=== PATIENT | female | born 1955 | race Caucasian/White ===

== ENCOUNTER 2019-11-16 09:02 | Emergency (ER) | payer OTHER, SELFPAY ==
--- NOTE | ~2019-11-16 | XR_ITS ---
EXAMINATION: XR chest 2V DATE: 11/16/2019 10:16 INDICATION: Cough, fever, shortness of breath. TECHNIQUE: Frontal and lateral views of the chest were obtained. COMPARISON: Chest 2 views 06/13/2017 FINDINGS: There is mild scarring at the lung apices. No pleural effusion or pneumothorax. The heart s ize is normal. There are suture anchors in right humeral head. Surgical clips in the right upper quad rant are likely from cholecystectomy. IMPRESSION: 1. Mild scarring at the lung apices. Reviewed, dictated and finalized at location A. LER TIER
[2019-11-16 09:05] VITALS: BP 135/79; PULSE 83; RESP 20; TEMP 36.6; O2SAT 93
[2019-11-16 09:30] VITALS: PULSE 84; RESP 16
[2019-11-16] MEDS: IPRATROPIUM 0.5 MG/ALBUTEROL SULFATE 2.5 MG AMPUL.NEB 3 ML INHALATION (09:30)
[2019-11-16 09:38] LABS: Basophils Absolute Auto 0.07 K/mm3 (0.00-0.10); Basophils Percent Auto 0.7 % (0.0-1.0); Eosinophils Absolute Auto 0.02 K/mm3 (0.02-0.50); Eosinophils Percent Auto 0.2 % (1.0-6.0); Hematocrit 43.6 % (35.0-49.0); Hemoglobin 15.3 g/dL (12.0-15.0); Immature Granulocyte Absolute 0.06 K/mm3 (0.00-0.00); Immature Granulocyte Percent A 0.6 % (0.0-0.0); Lymphocytes Absolute Auto 1.32 K/mm3 (1.10-4.50); Lymphocytes Percent Auto 13.3 % (18.0-42.0); Mean Corpuscular HGB Conc 35.1 g/dL (32.0-36.0); Mean Corpuscular Hemoglobin 32.5 pg (27.0-31.0); Mean Corpuscular Volume 92.6 fL (78.0-102.0); Mean Platelet Volume 8.8 fl (9.2-11.8); Monocytes Absolute Auto 1.18 K/mm3 (0.10-0.90); Monocytes Percent Auto 11.8 % (2.0-11.0); Neutrophils Absolute Auto 7.3 K/mm3 (1.7-7.2); Neutrophils Percent Auto 73.4 % (50.0-70.0); Platelet Count Result 361 K/mm3 (150-420); Red Blood Count 4.71 M/mm3 (4.20-5.40); Red Cell Distribution Width 12.2 % (11.6-14.4)
[2019-11-16 09:42] VITALS: O2SAT 93
[2019-11-16 09:45] VITALS: PULSE 82; RESP 24
[2019-11-16 09:54] LABS: Alanine Aminotransferase 37 U/L (14-59); Albumin Level 4.1 g/dL (3.4-5.0); Alkaline Phosphatase 153 U/L (46-116); Anion Gap 14.4 mmol/L (7-16); Aspartate Amino Transferase 34 U/L (15-37); Bilirubin,Total 0.3 mg/dL (0.00-1.00); Blood Urea Nitrogen 12 mg/dL (7-18); Carbon Dioxide 27 mmol/L (21-32); Chloride 88 mmol/L (98-108); Estimated CRCL calculation 40 ml/min; Estimated Glomerular Filt Rate > 60; Glucose 147 mg/dL (70-99); Osmolality Calculated 264 mOsm/kg (285-295); Potassium 3.4 mmol/L (3.5-5.1); Sodium 126 mmol/L (136-145); Total Protein 8.3 g/dL (6.4-8.2)
[2019-11-16] MEDS: methylPREDNISolone SOD SUCC 125 MG VIAL IV PUSH (09:55)
[2019-11-16 09:58] LABS: Influenza Control Valid (Valid)
--- NOTE | 2019-11-16 10:32 | ED.SOB ---
HPI - SOB/Dyspnea General Chief Complaint: Shortness of Breath/Dyspnea Stated Complaint: FEVER DIARRAHEA SOB Source: patient Limitations: no limitations History of Present Illness HPI Narrative: A 64-year-old female presents with cough and congestion with some shortness of breath without coarse breath sounds no audible wheezing initially had a O2 sats of 93%, history of hypertension, depression. The patient has a cough that is productive of clear white sputum, has recently been exposed to pneumonia and influenza, and last night had a temperature of 102? currently afebrile withl temperature of 97.6 O2 sats were at 93% on room air. There is no chest pain no chest tightness has had diarrhea with no nausea vomiting. Patient a chronic smoker but did quit 8 days ago. MD elicited complaint: shortness of breath and cough Onset (ago): day(s) Severity: moderate Exacerbating factors: coughing Relieving factors: rest and bronchodilators Associated symptoms: fever, cough and chest congestion Treatment prior to arrival: none Related Data Home Medications Medication Instructions Recorded Confirmed bupropion HCl [Wellbutrin SR] 150 mg PO BID 11/16/19 11/16/19 buspirone 15 mg PO BID 11/16/19 11/16/19 cholecalciferol (vitamin D3) 2,000 unit PO DAILY 11/16/19 11/16/19 [Vitamin D3] cyclobenzaprine 10 mg PO PRN PRN 11/16/19 11/16/19 gabapentin 600 mg PO TID 11/16/19 11/16/19 losartan 25 mg PO DAILY 11/16/19 11/16/19 trazodone 50 mg PO HS 11/16/19 11/16/19 Allergies Allergy/AdvReac Type Severity Reaction Status Date / Time Penicillins Allergy Severe RESPIRATORY Verified 06/19/16 16:47 / HIVES Review of Systems Review of Systems: All systems reviewed & are unremarkable except as noted in HPI and below PMFSH Past Medical History Medical History Depression HTN (hypertension) Exam Const: General: no acute distress and alert Nutritional Appearance: well nourished Orientation/consciousness: patient oriented x3 HENMT: Head: normal to inspection Eyes: Conjunctivae: conjunctivae normal Pupils: Equal, round and reactive pupils present EOM: EOMs intact bilaterally Neck: Neck: normal visual inspection and no lymphadenopathy Chest: Chest palpation & inspection: normal inspection of the chest Resp: Effort & Inspection: normal respiratory effort Auscultation: rhonchi and diminished lung sounds Cardio: Rate: regular rate Rhythm: regular rhythm GI: GI Palp: Yes Soft to palpation : General: Yes no CVA tenderness Skin: General skin exam: normal color Rashes: no rashes Neuro: General: patient oriented x3 and moves all extremities Extrem: General: normal to inspection Course Vital Signs Vital signs: Vital Signs Temperature 36.6 C 11/16/19 09:05 Pulse Rate 83 11/16/19 09:05 Respiratory Rate 20 11/16/19 09:05 Blood Pressure 135/79 11/16/19 09:05 Pulse Oximetry 93 11/16/19 09:05 Temperature 36.6 C 11/16/19 09:05 Pulse Rate 82 11/16/19 09:45 Respiratory Rate 24 H 11/16/19 09:45 Blood Pressure 135/79 11/16/19 09:05 Pulse Oximetry 93 11/16/19 09:42 MDM - SOB/Dyspnea Lab Data Attestation: I reviewed the patient's lab results. Result diagrams: 11/16/19 09:26 11/16/19 09:26 Labs: Lab Results 11/16/19 11/16/19 11/16/19 Range/Units 09:22 09:26 09:26 WBC 10.0 (4.8-10.8) K/mm3 RBC 4.71 (4.20-5.40) M/mm3 Hgb 15.3 H (12.0-15.0) g/dL Hct 43.6 (35.0-49.0) % MCV 92.6 (78.0-102.0) fL MCH 32.5 H (27.0-31.0) pg MCHC 35.1 (32.0-36.0) g/dL RDW 12.2 (11.6-14.4) % Plt Count 361 (150-420) K/mm3 MPV 8.8 L (9.2-11.8) fl Immature Gran % (Auto) 0.6 H (0.0-0.0) % Neut % (Auto) 73.4 H (50.0-70.0) % Lymph % (Auto) 13.3 L (18.0-42.0) % [place] % (Auto) 11.8 H (2.0-11.0) % Eos % (Auto) 0.2 L (1.0-6.0) % Baso % (Auto) 0.7 (0.0-1.0
[2019-11-16 10:37] VITALS: BP 102/68; PULSE 98; RESP 20; TEMP 37.2; O2SAT 96
== END 2019-11-16 10:50 | disposition home or self-care (01) ==
PROVIDERS: Emergency Provider Emergency Medicine; PCP Internal Medicine
DX: J06.9 Acute upper respiratory infection, unspecified (principal); R05 Cough; I10 Essential (primary) hypertension; F33.0 Major depressive disorder, recurrent, mild
CPT/HCPCS: 36415; 71046; 80053; 85025; 87040; 87081; 87804; 87880; 94640; 96374; 99283; 99284; J2930

== ENCOUNTER 2020-04-21 12:18 | Outpatient (CLI) | payer OTHER, SELFPAY ==
--- NOTE | ~2020-04-21 | DEXA_ITS ---
BMD(1) Young-Adult(2) Age-Matched(3) Region (g/cm2) T-score Z-score WHO Classification L1 0.829 -2.5 -0.9 Osteoporosis L2 0.833 -3.1 -1.5 Osteoporosis L3 1.033 -1.5 0.2 Osteopenia L4 1.076 -1.1 0.5 Osteopenia L1-L4 0.956 -1.9 -0.3 Osteopenia Trend: L1-L4 Change vs Change vs Measured Age BMD(1) Baseline Previous Date [age]) (g/cm2) (%) (%) 04[age]21/2020 [age] 0[age]956 2.5 3.0* 09[birth year]03/2013 58.5 0.928 -0.5 0.3 10[age]22/2010 55.6 0.925 -0.9 -0.9 10/17/2008 53.6 0.933 baseline - * - Indicates significant change based on 95% confidence interval. 1 - Statistically 68% of repeat scans fall within 1SD (+- 0.010 g/cm2 for AP Spine L1-L4) 2 - [place] (Combined NHANES (ages 20-30) / [employer] (ages 20-40)) AP Spine Reference Population (v112) 3 - Matched for Age, Weight (females 25-100 kg), Ethnic 11 - World Health Organization - Definition of Osteoporosis and Osteopenia for Women: Normal = T-score at or above -1.0 SD; Osteopenia = T-score between -1.0 and -2.5 SD; Osteoporosis = T-score at or below -2.5 SD; (WHO definitions only apply when a young healthy Women reference database is used to determine T-scores.) Printed: 04/21/2020 1:05:40 PM (13.60)76:3.00:50.00:12.0 0.00:9.96 0.60x1.05 19.1:%Fat=27.0% 0.00:0.00 0.00:0.00 Filename: [id number] Scan Mode: Standard;OneScan 37.0 [facility] [id number] BMD(1) Young-Adult(2,7) Age-Matched(3) Region (g/cm2) T-score Z-score WHO Classification Neck Left 0.759 -2.0 -0.5 Osteopenia Right 0.746 -2.1 -0.6 Osteopenia Mean 0.752 -2.1 -0.5 Osteopenia Difference 0.013 -0.1 -0.1 - Total Left 0.768 -1.9 -0.7 Osteopenia Right 0.788 -1.7 -0.5 Osteopenia Mean 0.778 -1.8 -0.6 Osteopenia Difference 0.020 0.2 0.2 - Hip [place] Length Comparison (mm) (Right = 100.6 mm) (Mean = 101.9 mm) (Left = 99.1 mm) Trend: Total Mean Change vs Change vs Measured Age BMD(1) Baseline Previous Date (years) (g/cm2) (%) (%) 04[age]21/2020 65.1 0.778 -9.4* -4.4* 09/03/2013 58.5 0.814 -5.2* -2.7 10/22/2010 55.6 0.837 -2.6 -2.6 10/17/2008 53.6 0.859 baseline - * - Indicates significant change based on 95% confidence interval. 1 - Statistically 68% of repeat scans fall within 1SD (+- 0.010 g/cm2 for DualFemur Total) 2 - [place] (Combined NHANES (ages 20-30) / [employer] (ages 20-40)) Femur Reference Population (v112) 3 - Matched for Age, Weight (females 25-100 kg), Ethnic 7 - Dual[employer]emur Total T-score difference is 0.2. Asymmetry is None. 11 - World Health Organization - Definition of Osteoporosis and Osteopenia for Women: Normal = T-score at or above -1.0 SD; Osteopenia = T-score between -1.0 and -2.5 SD; Osteoporosis = T-score at or below -2.5 SD; (WHO definitions only apply when a young healthy Women reference database is used to determine T-scores.) Printed: 04/21/2020 1:05:41 PM (13.60); Filename: [id number]; Right Femur; 16.5:%Fat=31.3%; Neck Angle (deg)= 66; Scan Mode: Standard 37.0 uGy; Left Femur; 16.5:%Fat=34.6%; Neck Angle (deg)= 69; Scan Mode: Standard 37.0 uGy [employer] [id number] Dear Romero Ludwig, Your patient Marissa Shoemaker completed a BMD test on 04/21/2020 using the [employer] DXA System (analysis version: 13.60)
--- NOTE | ~2020-04-21 | MM_ITS ---
EXAMINATION: MM screening mark BI w wei HISTORY: Screening mammogram TECHNIQUE: Craniocaudal and mediolateral oblique 3-D tomosynthesis images were obtained and synthetic 2-D images were generated. CAD analysis was submitted and interpreted. COMPARISON: 01/11/2019, 06/13/2017 bilateral digital screening mammogram examinations BREAST PARENCHYMAL COMPOSITION: The breasts are extremely dense, which lowers the sensitivity of mamm ography. FINDINGS: There is no evidence of suspicious mass, calcification, or architectural distortion to sugg est malignancy in either breast. There has been no suspicious interval change. IMPRESSION: 1. No mammographic evidence of malignancy. 2. Recommend routine screening mammography in one year. BI-RADS Category 1: Negative Reviewed, dictated and finalized at location A.
== END 2020-04-21 12:19 | disposition home or self-care (01) ==
LOC: CHSIMG 12:21
PROVIDERS: PCP Internal Medicine; Visit Provider Internal Medicine
DX: Z12.31 Encounter for screening mammogram for malignant neoplasm of breast (principal); M81.0 Age-related osteoporosis without current pathological fracture
CPT/HCPCS: 77063; 77067; 77080

== ENCOUNTER 2020-05-17 10:19 | Outpatient (CLI) | payer OTHER, SELFPAY ==
--- NOTE | ~2020-05-17 | US_ITS ---
EXAMINATION: US soft tissue head and neck DATE: 05/17/2020 10:39 INDICATION: Left posterior neck lump. TECHNIQUE: Multiple grayscale and Doppler ultrasound images of the neck were obtained. COMPARISON: Neck CT 06/13/2017 FINDINGS: There is a normal-sized subcutaneous lymph node in left posterior neck in the patient's are a of concern. IMPRESSION: 1. Normal subcutaneous lymph node in left posterior neck in the patient's area of concern. Reviewed, dictated and finalized at location A.
== END 2020-05-17 10:20 | disposition home or self-care (01) ==
PROVIDERS: PCP Internal Medicine; Visit Provider Internal Medicine
DX: R59.0 Localized enlarged lymph nodes (principal)
CPT/HCPCS: 76536

== ENCOUNTER 2020-10-18 16:07 | Outpatient (CLI) | payer OTHER, SELFPAY ==
[2020-10-18 16:56] LABS: SARS-CoV-2 Ag Negative (Negative)
== END 2020-10-18 16:08 | disposition home or self-care (01) ==
LOC: CHSLAB 16:08
PROVIDERS: PCP Internal Medicine; Visit Provider Internal Medicine
DX: Z20.828 Contact with and (suspected) exposure to other viral communicable diseases (principal)
CPT/HCPCS: 87426

== ENCOUNTER 2021-05-08 13:23 | Outpatient (CLI) | payer OTHER, SELFPAY ==
[2021-05-08 14:41] LABS: SARS-CoV-2 RNA PCR Negative (Negative)
== END 2021-05-08 13:24 | disposition home or self-care (01) ==
LOC: CHSLAB 13:26
PROVIDERS: PCP Internal Medicine; Visit Provider Nurse Practitioner Family
DX: Z20.822 Contact with and (suspected) exposure to COVID-19 (principal)
CPT/HCPCS: C9803; U0003; U0005

== ENCOUNTER 2021-08-01 14:14 | Outpatient (CLI) | payer OTHER, SELFPAY ==
--- NOTE | ~2021-08-01 | XR_ITS ---
XR chest 2V DATE: 08/01/2021 14:45 INDICATION: Productive cough, wheezing. Smoker. Influenza A. TECHNIQUE: 2 views COMPARISON: 11/16/2021 view chest FINDINGS: There is bilateral hyperinflation, consistent with COPD. No pulmonary infiltrate or consoli dation, pleural effusion or pulmonary vascular congestion or pneumothorax. Normal heart size. No hilar or mediastinal enlargement. Moderate osteopenia. [place] device of right humeral head Status post cholecystectomy. IMPRESSION: Bilateral hyperinflation, consistent with COPD Reviewed, dictated and finalized at location B.
== END 2021-08-01 14:15 | disposition home or self-care (01) ==
LOC: CHSIMG 14:15
PROVIDERS: PCP Internal Medicine; Visit Provider Internal Medicine
DX: J44.1 Chronic obstructive pulmonary disease with (acute) exacerbation (principal)
CPT/HCPCS: 71046

== ENCOUNTER 2021-08-06 12:20 | Outpatient (CLI) | payer OTHER, SELFPAY ==
--- NOTE | ~2021-08-06 | CT_ITS ---
EXAMINATION: CT lung screening DATE: 08/06/2021 12:39 INDICATION: Nicotine dependence. TECHNIQUE: Computed tomography (CT) of the chest was performed without intravenous contrast. The dose -length product was 62.71 mGy-cm. Automated exposure control and iterative reconstruction technique w ere employed. COMPARISON: CT dated 03/11/2019 FINDINGS: No thoracic lymphadenopathy. Heart size is normal. No significant pleural or pericardial ef fusion. Upper abdomen is unremarkable. There are cholecystectomy clips. Moderate thoracic spondylosis . No significant change to small apical nodules measuring 2 mm or less. There is emphysema. No endobr onchial lesions. No pneumothorax. No new pulmonary nodules or masses. IMPRESSION: 1. Lung-RADS category 2: Benign appearance or behavior. Continue annual screening with noncontrast lo w-dose chest CT in 12 months. Reviewed, dictated and finalized at location B. IMPRESSION: 1. Lung-RADS category 2: Benign appearance or behavior. Continue annual screeni ng with noncontrast low-dose chest CT in 12 months.
== END 2021-08-06 12:21 | disposition home or self-care (01) ==
LOC: CHSIMG 12:21
PROVIDERS: PCP Internal Medicine; Visit Provider Internal Medicine
DX: Z12.2 Encounter for screening for malignant neoplasm of respiratory organs (principal); Z87.891 Personal history of nicotine dependence
CPT/HCPCS: 71271

== ENCOUNTER 2021-08-24 13:48 | Outpatient (CLI) | payer OTHER, SELFPAY ==
--- NOTE | 2021-08-24 14:00 | ECG_ITS ---
Measurements Intervals [place] Rate: 70 P: 79 [place]: 207 QRS: 71 QRSD: 94 T: 63 QT: 382 QTc: 413 Interpretive Statements SINUS RHYTHM WITH FIRST DEGREE AV BLOCK ANTEROSEPTAL INFARCT, AGE INDETERMINATE BORDERLINE ST ABNORMALITY- INF/LAT LEADS ABNORMAL ECG Electronically Signed On 08-24-2021 14:38:09 CDT by Jose Alejandro Garcia D.O.
--- NOTE | 2021-09-24 09:18 | WPDHOLTEREM ---
Holter/Event Monitor Holter/Event Monitor Date of procedure: 08/24/21 Holter/Event Procedure: Event Monitor Indications: Palpitations Conclusion: 1. 26 days event monitor on 08/24/21-09/22/21. There are 16 available transmissions for analysis. 2. Underlying rhythm is sinus rhythm. HR range 53-120 bpm; average HR 75 bpm. 3. There are occasional premature supraventricular complexes with total burden of 1%. No supraventricular tachycardia. 4. There are occasional premature ventricular complexes with total burden of <1%. No ventricular tachycardia. 5. No significant pauses greater than 2 seconds. 6. Patient reports 7 episodes of symptoms of chest pain, heart racing and symptoms other than listed which demonstrate sinus rhythm, HR range 77-89 bpm and with episodes having PAC's.
== END 2021-08-24 13:49 | disposition home or self-care (01) ==
LOC: CHSCARD 13:50
PROVIDERS: PCP Internal Medicine; Visit Provider Internal Medicine
DX: R00.2 Palpitations (principal); I10 Essential (primary) hypertension
CPT/HCPCS: 93005; 93270

== ENCOUNTER 2021-10-01 13:50 | Outpatient (CLI) | payer OTHER, SELFPAY ==
--- NOTE | 2021-10-01 13:51 | ECHO_ITS ---
Patient Info Name: Marissa Shoemaker Age: 66 years : 1955 Gender: Female Ht: 60 in Wt: 125 lbs BSA: 1.56 m2 HR: 66 bpm BP: 139 / 60 mmHg Exam Date: 10/01/2021 2:41 PM Exam Location: [facility], [place] Patient Status: Outpatient Admit Date: 10/01/2021 Staff Ordering Physician: Jose Alejandro Garcia DO Software Developer Manager: Isabel Reynoso Attending Provider: Jose Alejandro Garcia DO Referring Physician: Jose BLUNT; Exam Type: CA echo doppler color flow Study Info Indications R06.00 - Dyspnea, unspecified Complete two-dimensional, color flow and Doppler transthoracic echocardiogram is performed. Strain analysis performed. Summary 1. Complete two-dimensional, color flow and Doppler transthoracic echocardiogram is performed. 2. Left ventricular chamber dimension is normal. 3. Left ventricular systolic function is normal, estimated at 60-65%. 4. The left ventricular diastolic function is abnormal. 5. E/e' 13 is mildly elevated. 6. Global longitudinal strain is normal at -21.3%. 7. There is trace mitral valve regurgitation. Left Ventricle E/e' 13 is mildly elevated. Global longitudinal strain is normal at -21.3%. Left ventricular chamber dimension is normal. Left ventricular systolic function is normal, estimated at 60-65%. The left ventricular diastolic function is abnormal. Right Ventricle Right ventricular systolic function is normal and with normal TAPSE 2.1 cm. Right ventricular chamber dimension is normal. Left Atria Left atrial chamber dimension is normal. Right Atria Right atrial chamber dimension is normal. Aortic Valve The aortic valve is trileaflet. There is no aortic valve stenosis. There is no aortic valve regurgitation. Pulmonic Valve There is no pulmonic regurgitation. Mitral Valve There is no mitral valve stenosis. There is trace mitral valve regurgitation. Tricuspid Valve There is no tricuspid valve regurgitation. Pericardium/Pleural There is no pericardial effusion. Inferior Vena Cava Normal inferior vena cava with >50% collapse upon inspiration consistent with normal right atrial pressure, 5 mmHg. Aorta The aortic root size at the sinus of Valsalva is normal. Left Ventricular Outflow Tract Name Value Normal LVOT 2D LVOT Diameter 2.0 cm LVOT Doppler LVOT Peak Velocity 109 cm/s LVOT Peak Gradient 5 mmHg LVOT Mean Gradient 3 mmHg LVOT VTI 26 cm LVOT VTI/AV VTI Ratio 1.0 LVOT Stroke Volume 78 ml Mitral Valve Name Value Normal MV Doppler MV Decel [place] 434 cm/s2 MV PHT 56 ms MV Area (PHT) 3.9 cm2 4.0-5.0 MV Regurgitation Doppler
== END 2021-10-01 13:51 | disposition home or self-care (01) ==
LOC: CHSIMG 13:51
PROVIDERS: PCP Internal Medicine; Visit Provider Internal Medicine Cardiovascular Disease
DX: R06.00 Dyspnea, unspecified (principal)
CPT/HCPCS: 93306

== ENCOUNTER 2021-10-08 11:28 | Outpatient (CLI) | payer OTHER, SELFPAY ==
--- NOTE | 2021-10-08 13:00 | EST_ITS ---
Patient Info Name: Marissa Shoemaker Age: 66 years : 1955 Gender: Female Ht: 60 in Wt: 123 lbs BSA: 1.55 m2 Exam Date: 10/08/2021 12:22 PM Exam Location: [facility] Patient Status: Outpatient Admit Date: 10/08/2021 Staff Ordering Physician: Jose Alejandro Garcia DO Attending Provider: Jose Alejandro Garcia DO Exam Type: CA stress shandra w NM Summary 1. 1. Negative Lexiscan stress test for ischemic ST changes by ECG criteria. 2. 2. Baseline hypertension. 3. 3. Nuclear scan to follow and will be reported separately. Please correlate with it. 4. 4. Patient informed of the above results. Protocol: LEXISCAN Stress ECG Details Stage: REST Duration (min): 1 min : 13 sec HR (bpm): 66 SBP (mmHg): 157 DBP (mmHg): 78 Stage: REST Duration (min): 3 min : 51 sec HR (bpm): 66 SBP (mmHg): 157 DBP (mmHg): 78 Stage: REST Duration (min): 20 min : 25 sec HR (bpm): 68 SBP (mmHg): 157 DBP (mmHg): 78 Stage: STAGE 1 Duration (min): 0 min : 6 sec HR (bpm): 71 SBP (mmHg): 157 DBP (mmHg): 78 Stage: RECOVERY Duration (min): 0 min : 53 sec HR (bpm): 80 SBP (mmHg): 157 DBP (mmHg): 78 Stage: RECOVERY Duration (min): 1 min : 53 sec HR (bpm): 83 SBP (mmHg): 157 DBP (mmHg): 78 Stage: RECOVERY Duration (min): 2 min : 53 sec HR (bpm): 83 SBP (mmHg): 155 DBP (mmHg): 74 Stage: RECOVERY Duration (min): 3 min : 53 sec HR (bpm): 78 SBP (mmHg): 144 DBP (mmHg): 75 Stage: RECOVERY Duration (min): 4 min : 53 sec HR (bpm): 76 SBP (mmHg): 132 DBP (mmHg): 75 Stage: RECOVERY Duration (min): 5 min : 53 sec HR (bpm): 76 SBP (mmHg): 136 DBP (mmHg): 76 Stage: RECOVERY Duration (min): 6 min : 4 sec HR (bpm): 75 SBP (mmHg): 136 DBP (mmHg): 76 Rest HR: 68 bpm Peak HR: 86 bpm Rest Sys BP: 157 mmHg Peak Sys BP: 155 mmHg Max Pred HR: 156 bpm % Max Pred HR: 55 % Target HR: 133 bpm Max RPP: 13,330 bpm*mmHg Termination Reason: Completed protocol Cardiac Symptoms: Shortness of breath Total Time: 0 min : 6 sec Rest Romero BP: 78 mmHg Peak Romero BP: 74 mmHg Total Dose: 0.4 mg Resting ECG Sinus rhythm, anteroseptal infarct, age indeterminate, borderline ST-T wave abnormality in inferior leads. Stress ECG No ST changes. Arrhythmias None. Report Signatures
--- NOTE | 2021-10-08 15:27 | WPDCARIOSTRE ---
Nuclear Stress Test INDICATIONS Indications: Chest pain PROCEDURE Procedure Performed: Myocardial Perf Spect-Multi Procedure: Patient underwent a lexiscan stress test and immediately as injected with 32.8 mCi of cardiolyte. Multiple tomographic images were obtained. These are of good quality. There is no perfusion defects noted during stress imaging. A separate resting images were obtained after patient was injected with 10.2 mCi of cardiolyte. Multiple tomographic images were obtained. These are of good quality. There is no perfusion defects noted during rest imaging. CONCLUSION Conclusion: 1. Normal myocardial perfusion imaging demonstrating no perfusion defects with stress or rest imaging. 2. No evidence of reversible ischemia. 3. Left ventriculogram demonstrates normal measured ejection fraction of 74%. No wall motion abnormalities. 4. TID score 1.1 is normal.
== END 2021-10-08 11:29 | disposition home or self-care (01) ==
LOC: CHSCARD 11:29
PROVIDERS: PCP Internal Medicine; Visit Provider Internal Medicine Cardiovascular Disease
DX: R06.00 Dyspnea, unspecified (principal)
CPT/HCPCS: 78452; 93017; A9502; J2785

== ENCOUNTER 2021-10-22 14:24 | Outpatient (CLI) | payer OTHER, SELFPAY ==
[2021-10-22 16:36] LABS: Influenza A QL RT-PCR Negative (Negative); Influenza B QL RT-PCR Negative (Negative); SARS-CoV-2 RNA PCR Negative (Negative)
== END 2021-10-22 14:25 | disposition home or self-care (01) ==
LOC: CHSLAB 14:26
PROVIDERS: PCP Internal Medicine; Visit Provider Internal Medicine
DX: J06.9 Acute upper respiratory infection, unspecified (principal); Z20.822 Contact with and (suspected) exposure to COVID-19
CPT/HCPCS: 87502; C9803; U0003; U0005

== ENCOUNTER 2022-03-28 09:45 | Outpatient (CLI) | payer MEDICARE, MEDICAID, SELFPAY ==
--- NOTE | ~2022-03-28 | XR_ITS ---
EXAMINATION: XR foot LT min 3V DATE: 03/28/2022 10:23 INDICATION: Left first toe pain, initial encounter TECHNIQUE: Dorsoplantar, lateral, and 2 oblique views of the left foot were obtained. COMPARISON: None. FINDINGS: There is an acute, traumatic, closed fracture in the proximal neck of the first proximal ph alanx which extends to the first metatarsophalangeal joint. There is subtle offset of the articular s urface at the fracture site. Soft tissue swelling surrounds the fracture. No additional acute osseous findings are evident. There is moderate osteoarthritis at the first metatarsophalangeal joint and mi ld osteoarthritis of multiple interphalangeal joints. A plantar calcaneal enthesophyte is noted. IMPRESSION: 1. Acute fracture of the first proximal phalanx extending to the first metatarsophalangeal joint. Reviewed, dictated and finalized at location A. IMPRESSION: 1. Acute fracture of the first proximal phalanx extending to the first metatars ophalangeal joint.
== END 2022-03-28 09:46 | disposition home or self-care (01) ==
PROVIDERS: PCP Internal Medicine; Visit Provider Internal Medicine
DX: S99.922A Unspecified injury of left foot, initial encounter (principal)
CPT/HCPCS: 73630

== ENCOUNTER 2022-04-01 12:52 | Outpatient (CLI) | payer MEDICARE, MEDICAID, SELFPAY ==
--- NOTE | ~2022-04-01 | XR_ITS ---
EXAMINATION: XR foot LT min 3V DATE: 04/01/2022 13:11 INDICATION: Left foot pain post injury TECHNIQUE: Standing dorsal plantar, two oblique and lateral views of the left foot were obtained. COMPARISON: 04/07/2022 FINDINGS: Again seen is a sagittally oriented intra-articular fracture of the left first proximal phalanx. The fracture remains minimally displaced with slight increase in a now 1-1.5 mm lucent fracture gap at th e proximal articular surface without significant incongruity. No other fractures identified. Polyarti cular osteoarthritis, moderate severity at the first metatarsophalangeal joint and mild at multiple t arsal metatarsal and interphalangeal joints. Small plantar calcaneal spur. Bunion at the medial head of the first metatarsal. IMPRESSION: 1. No significant change in a minimally displaced intra-articular fracture of the first proximal phal anx. Reviewed, dictated and finalized at location A. IMPRESSION: 1. No significant change in a minimally displaced intra-articular fracture of t he first proximal phalanx.
== END 2022-04-01 12:53 | disposition home or self-care (01) ==
PROVIDERS: PCP Internal Medicine; Visit Provider Orthopaedic Surgery
DX: M19.072 Primary osteoarthritis, left ankle and foot (principal); M77.32 Calcaneal spur, left foot; M21.612 Bunion of left foot
CPT/HCPCS: 73630

== ENCOUNTER 2022-04-23 08:04 | Outpatient (CLI) | payer MEDICARE, MEDICAID, SELFPAY ==
--- NOTE | ~2022-04-23 | DEXA_ITS ---
Bone Density Report Name: MIGUEL FLOOD Age: 67 Sex: Female Ethnicity: White Date of : 1955 Indication: postmenopausal; screening for osteoporosis; height loss; prior fracture; hysterectomy; Referring Provider: Romero Ludwig Study: Bone densitometry was performed. Exam Date: April 23, 2022 Accession number: [id number] Bone Density: Region BMD T-score Z-score Classification AP Spine(L1-L4) 0.787 -2.4 -0.6 Osteopenia Femoral Neck (Left) 0.590 -2.3 -0.8 Osteopenia Total Hip (Left) 0.721 -1.8 -0.6 Osteopenia Femoral Neck (Right) 0.590 -2.3 -0.8 Osteopenia Total Hip (Right) 0.745 -1.6 -0.4 Osteopenia Femoral Neck Mean 0.590 -2.3 -0.8 Osteopenia Total Hip Mean 0.733 -1.7 -0.5 Osteopenia World Health Organization criteria for BMD impression classify patients as: Normal (T-score at or above -1.0), Osteopenia (T-score between -1.0 and -2.5), or Osteoporosis (T-score at or below -2.5). 10-year Fracture Risk(1): Major Osteoporotic Fracture 19% Hip Fracture 3.4% Reported Risk Factors: [place] (), Neck BMD=0.590, BMI=27.4, previous fracture (1) FRAX(R) Version 3.08. Fracture probability calculated for an untreated patient. Fracture probability may be lower if the patient has received treatment. Clinical Information Provided by Patient: Has had a low trauma fracture Has used the following medications: Vitamin D, Calcium, multi vitamin Has the following medical conditions: Hysterectomy Patient maximum height was 62 Menopause Age: 46 No regular weight bearing exercise Drinks caffeinated beverages Onset of menses at age 19 Number of children 2 Missed period for more than 6 months in a row Impression: The patient has low bone mass, based on the Total Spine T-score. The patient has risk factors, including: previous fracture. Discussion: BONE DENSITY IS LOW AT ONE OR MORE SKELETAL SITES. This patient's lowest T-score is low at one or more skeletal sites. It meets the World Health Organization's (WHO) criteria for ?low bone mass? (T-score between -1.0 and -2.5). The patient's 10-year risk of fracture as calculated by FRAX is less than the threshold where pharmacological therapy is recommended by the National Osteoporosis Foundation (NOF). However, all treatment decisions require clinical judgment and consideration of individual patient factors, including patient preferences, comorbidities, previous drug use, risk factors not captured in the FRAX model (e.g., frailty, falls, vitamin D deficiency, increased bone turnover, interval significant decline in bone density) and possible under or overestimation of fracture risk by FRAX. The patient should follow a healthful lifestyle (good nutrition with adequate calcium and vitamin D, and appropriate weight-bearing exercise
--- NOTE | ~2022-04-23 | MM_ITS ---
EXAMINATION: MM screening mark BI w wei HISTORY: Screening TECHNIQUE: Craniocaudal and mediolateral oblique 3-D tomosynthesis images were obtained and synthetic 2-D images were generated. CAD analysis was submitted and interpreted. COMPARISON: Comparison to multiple prior studies sequentially, with oldest reviewed study dated 01/04. BREAST PARENCHYMAL COMPOSITION: The breasts are heterogeneously dense, which may obscure small masses . FINDINGS: There is no evidence of suspicious mass, calcification, or architectural distortion to sugg est malignancy in either breast. There has been no suspicious interval change. IMPRESSION: 1. No mammographic evidence of malignancy. 2. Recommend routine screening mammography in one year. BI-RADS Category 1: Negative Reviewed, dictated and finalized at location A.
== END 2022-04-23 08:05 | disposition home or self-care (01) ==
LOC: CHSIMG 08:07
PROVIDERS: PCP Internal Medicine; Visit Provider Internal Medicine
DX: M81.0 Age-related osteoporosis without current pathological fracture (principal); Z12.31 Encounter for screening mammogram for malignant neoplasm of breast
CPT/HCPCS: 77063; 77067; 77080

== ENCOUNTER 2022-05-06 08:00 | Outpatient (CLI) | payer MEDICARE, MEDICAID, SELFPAY ==
--- NOTE | ~2022-05-06 | XR_ITS ---
XR foot LT min 3V DATE: 05/06/2022 08:42 INDICATION: Fracture 6 weeks ago TECHNIQUE: 3 views COMPARISON: 04/01/2022 left foot 03/28/2022 left foot FINDINGS: There is sclerosis around the virtually nondisplaced linear intra-articular fracture of the base and shaft proximal phalanx of the first digit, consistent with healing. No interval change in p osition or alignment. There is mild to moderate osteoarthritic change at the first metatarsophalangeal joint. Mild plantar calcaneal enthesopathy. No other significant bony abnormality. IMPRESSION: Healing virtually nondisplaced intra-articular fracture of the base and shaft of the prox imal phalanx of the first digit Reviewed, dictated and finalized at location B. IMPRESSION: Healing virtually nondisplaced intra-articular fracture of the base and shaft of the proximal phalanx of the first digit
== END 2022-05-06 08:01 | disposition home or self-care (01) ==
LOC: CHSIMG 08:02
PROVIDERS: PCP Internal Medicine; Visit Provider Orthopaedic Surgery
DX: M79.672 Pain in left foot (principal); S92.415D Nondisplaced fracture of proximal phalanx of left great toe, subsequent encounter for fracture with routine healing
CPT/HCPCS: 73630

== ENCOUNTER 2022-06-19 12:56 | Outpatient (CLI) | payer MEDICARE, MEDICAID, SELFPAY ==
--- NOTE | ~2022-06-19 | XR_ITS ---
CORRECTED REPORT impression fix 06/25/22 [facility] [place] EXAMINATION: XR toe 1st LT min 2V DATE: 06/19/2022 15:45 INDICATION: Persistent left great toe pain and swelling post fracture 2 months prior. TECHNIQUE: Dorsal plantar, lateral and oblique views of the left great toe were obtained. COMPARISON: Radiograph dated 05/06/2022 and 04/07/2022 FINDINGS: Again seen is a healing intra-articular fracture at the medial base of the left first proximal phalanx. There is decreased lucency at the distal margin of the fracture reported persistent 1.5 mm lucent fracture gap without step-off at the articular cortex. 30 degree hallux valgus with bunion at the medial head of the first metatarsal. Unchanged mild to moderate osteoarthritis at the first metatarsophalangeal joint and second distal interphalangeal joint. Mild osteoarthritis at the remaining visualized interphalangeal and metatarsophalangeal joints. IMPRESSION: 1. Healing intra-articular fracture at the base of the first proximal PHALANX which remains in near-anatomic alignment. 2. Mild to moderate polyarticular osteoarthritis at the visualized medial left forefoot. 3. Hallux valgus with bunion. Reviewed, dictated and finalized at location A. MTDD IMPRESSION: 1. Healing intra-articular fracture at the base of the first proximal thighs wh ich remains in near-anatomic alignment. 2. Mild to moderate polyarticular osteoarthritis at the visualized medial left forefoot. 3. Hallux valgus with bunion.
== END 2022-06-19 12:57 | disposition home or self-care (01) ==
LOC: CHSIMG 13:02
PROVIDERS: PCP Internal Medicine; Visit Provider Internal Medicine
DX: S92.412D Displaced fracture of proximal phalanx of left great toe, subsequent encounter for fracture with routine healing (principal)
CPT/HCPCS: 73660

== ENCOUNTER 2022-07-15 08:04 | Outpatient (CLI) | payer MEDICARE, MEDICAID, SELFPAY ==
--- NOTE | ~2022-07-15 | XR_ITS ---
EXAMINATION: XR foot LT min 3V DATE: 07/15/2022 08:51 INDICATION: Left foot pain TECHNIQUE: Dorsoplantar, lateral, and oblique views of the left foot were obtained. COMPARISON: 06/19/2022 FINDINGS: Again seen is an intra-articular fracture at the medial base of the first proximal phalanx. Calcified callus at the fracture site has minimally increased. No additional fracture is identified. There is mild osteoarthritis of multiple interphalangeal joints. A plantar calcaneal enthesophyte is noted. The soft tissues are unremarkable. Hallux valgus with bunion is again noted. IMPRESSION: 1. Intra-articular fracture at the medial base of the first proximal phalanx with minimal interval he aling. Reviewed, dictated and finalized at location A. IMPRESSION: 1. Intra-articular fracture at the medial base of the first proximal phalanx wi th minimal interval healing.
== END 2022-07-15 08:05 | disposition home or self-care (01) ==
LOC: CHSIMG 08:06
PROVIDERS: PCP Internal Medicine; Visit Provider Orthopaedic Surgery
DX: M79.672 Pain in left foot (principal)
CPT/HCPCS: 73630

== ENCOUNTER 2022-07-31 13:52 | Outpatient (RCR) | payer MEDICARE, MEDICAID, SELFPAY ==
--- NOTE | 2022-07-31 15:19 | PTOPEVAL1 ---
Assessment and note entered by JT File, PT Evaluation Information Assessment Status Evaluation Diagnosis L great toe injury, fracture of the L great toe Onset 03/31/22 Subjective Information patient reports back in March she fell down the landing at her sisters house. she reports her ftoo stayed behind her. he reports her L great toe was black and blue for days. she reports she had an xray in march, april, may, and june which all report anatamoical alignment, but a fracture in the proximal phalanx of the L great toe. she reports she continues to have swelling in the toe, throbbing and swelling at night, and inability to push up on the toes. she is unable to bend it. she is complicated by arthritis in the foot/toe and by halux vaglus of the L great toe. she reports she wore a boto from march til may. she reports she has already tried new shoes and inserts in her shoes, but no change in pain/ symptoms. she reports she is walking more than a block a day with her dog still, and she is up on her feet every day. Reported Pain Level Pain Score 1: Self Report Assessment PT Clinical Summary mrs. leach is a 67 yo woman who presents to skilled PT services for evaluation and treatment of L great toe pain. she is 4 months post fracture of the proximal phalanx of the L great toe. she displays decreased rom, decreased rom, abnormal gait, and pain with palpation/mobility. she would do well to attend and participate in skilled PT services to improve her objective/functional deficits and progress towards a return to prior level ambulation and activity performance. Plan of Care Interventions Gait Training,Hot Pack/Cold Pack,Manual Therapy, Neuro Re-education,Patient/Caregiver Educati, Therapeutic Activities,Therapeutic Exercise PT Services Indicated Yes Treatment Frequency and 3x weekly for 12 visits Duration These treatments will address the objective and functional deficits as defined above. The patient will be advanced safely and appropriately in order for the patient to progress towards his/her prior level of function. Additional exercises will be introduced and as well as a comprehensive home exercise program upon discharge, if needed, ?to ensure carryover of functional gains achieved in the clinic. This treatment plan has been reviewed and agreement upon by the patient.
--- NOTE | 2022-08-30 11:00 | PTOPPROG ---
Assessment and note entered by Crystal Thompson DPT Evaluation Information Assessment Status Progress Diagnosis L great toe injury, fracture of the L great toe Onset 03/31/22 Subjective Information Pt reports that she got new orthotics yesterday but that it doesn't feel quite right. She reports her pain as a 2/10 but feels that it would be less if not for her orthotic. She can tell that her toe has been moving more easily recently. Assessment PT Clinical Summary Pt presents to physical therapy with signficant improvements in pain, range of motion, and strength since her initial evaluation. She is still limited in her range of motion which leads to a continued altered gait pattern. She will benefit from additional skilled PT to further facilitate symptom relief, improve range of motion , strength, and gait pattern, and return to functional and recreational activities. Plan of Care PT Services Indicated Yes Treatment Frequency and 2x week for 4 visits Duration These treatments will address the objective and functional deficits as defined above. The patient will be advanced safely and appropriately in order for the patient to progress towards his/her prior level of function. Additional exercises will be introduced and as well as a comprehensive home exercise program upon discharge, if needed, ?to ensure carryover of functional gains achieved in the clinic. This treatment plan has been reviewed and agreement upon by the patient.
--- NOTE | 2022-09-26 13:44 | PTOPDC ---
Assessment and note entered by Glenys Mitchell, PT Evaluation Information Assessment Status Discharge Diagnosis L great toe injury, fracture of L great toe Onset 03/31/22 Subjective Information Marissa Shoemaker reports she is doing better since initiating PT. She does have difficulty with squatting due to pain in her left great toe from bending too much. She does not have pain with all other activity. She does feel she has more mobility in her toe though. Reported Pain Level Pain Score 1: Self Report Assessment PT Clinical Summary Marissa Shoemaker has completed 16 skilled PT visits following a left great toe fracture. She is reporting improved mobility in her left great toe and only has pain with squatting for too long due to her toe bending. She is reporting no pain or difficulty with all other ADLs. She demonstrates improved left great toe active and passive ROM, improved strength in the left great toe and ankle, improved balance, improved gait, improved endurance, and improved functional abilities. She will be discharged to an independent HEP. Plan of Care Interventions Gait Training,Manual Therapy,Neuro Re-education, Therapeutic Activities,Therapeutic Exercise PT Services Indicated No Treatment Frequency and Discharge to an independent HEP. Duration
== END 2022-09-26 13:26 | disposition home or self-care (01) ==
LOC: CHSPT 13:52
PROVIDERS: Visit Provider Nurse Practitioner Family
DX: S92.412D Displaced fracture of proximal phalanx of left great toe, subsequent encounter for fracture with routine healing (principal); M20.12 Hallux valgus (acquired), left foot; S42.202D Unspecified fracture of upper end of left humerus, subsequent encounter for fracture with routine healing
CPT/HCPCS: 97110; 97161; 97530

== ENCOUNTER 2023-01-15 12:07 | Outpatient (CLI) | payer MEDICARE, MEDICAID, SELFPAY ==
--- NOTE | ~2023-01-15 | XR_ITS ---
AP and oblique views of the left ribs Clinical History: Pain Findings: No rib fracture is seen. Osseous alignment is anatomic. Lungs are clear, without focal cons olidation or pleural effusion. Cardiomediastinal contour is within normal limits. Soft tissues are un remarkable. Impression: No rib fracture is seen. Reviewed, dictated and finalized at [facility]. Impression: No rib fracture is seen.
== END 2023-01-15 12:08 | disposition home or self-care (01) ==
LOC: CHSIMG 12:08
PROVIDERS: PCP Internal Medicine; Visit Provider Nurse Practitioner Family
DX: R07.81 Pleurodynia (principal)
CPT/HCPCS: 71100

== ENCOUNTER → 2023-01-15 14:18 | Outpatient (CLI) | payer MEDICARE, SELFPAY ==
--- NOTE | ~2023-01-15 | CT_ITS ---
EXAMINATION: CT lung screening DATE: 01/15/2023 14:34 INDICATION: Personal history of nicotine dependence, current smoker with 47 pack year history TECHNIQUE: Computed tomography (CT) of the chest was performed without intravenous contrast. The dose -length product (DLP) was 45.63 mGy-cm. Automated exposure control and iterative reconstruction techn Nephosityue were employed. COMPARISON: 08/06/2021 FINDINGS: There is mild emphysema. There is mild scarring of the lung apices. There are stable nodule s measure 1 to 2 mm in the right lung apex. No pleural effusion or pneumothorax. There is mild atelec tasis of the lingula. No pathologically enlarged thoracic lymph nodes are identified. The heart size is normal. There is moderate thoracic spondylosis. The gallbladder is surgically absent. IMPRESSION: 1. Lung-RADS category 2: Benign appearance or behavior. Continue annual screening with noncontrast lo w-dose chest CT in 12 months. Reviewed, dictated and finalized at location F. IMPRESSION: 1. Lung-RADS category 2: Benign appearance or behavior. Continue annual screeni ng with noncontrast low-dose chest CT in 12 months.
== END ==
PROVIDERS: PCP Internal Medicine; Visit Provider Internal Medicine
DX: Z12.2 Encounter for screening for malignant neoplasm of respiratory organs (principal); Z87.891 Personal history of nicotine dependence
CPT/HCPCS: 71271

== ENCOUNTER 2023-04-18 11:16 | Emergency (ER) | payer MEDICARE, MEDICAID, SELFPAY ==
[2023-04-18 11:16] VITALS: BP 132/79; PULSE 99; RESP 16; TEMP 37.1; O2SAT 96
[2023-04-18 11:24] VITALS: BP 132/79; PULSE 99; RESP 16; TEMP 37.1; O2SAT 96
--- NOTE | 2023-04-18 11:25 | ED.ALLEREA ---
HPI - Allergic Reaction General Chief complaint: Allergic Reaction Stated complaint: injection site pain Time Seen by Provider: 04/18/23 11:20 Source: patient and RN notes reviewed Mode of arrival: ambulatory Limitations: no limitations History of Present Illness complaint: allergic reaction Onset (ago): day(s) (1) Exposure: medication ( pneumonia shot) Symptoms: other ( swelling in the left upper) Severity: moderate Treatment prior to arrival: ice Previous Allergic Reaction History: other ( similar symptoms in the past) Related Data Home Medications Medication Instructions Recorded Confirmed bupropion HCl 150 mg tablet,12 hr 150 mg PO BID 11/16/19 04/18/23 sustained-release (Wellbutrin SR) cholecalciferol (vitamin D3) 50 2,000 unit PO DAILY 11/16/19 04/18/23 mcg (2,000 unit) tablet (Vitamin D3) cyclobenzaprine 10 mg tablet 10 mg PO PRN PRN Pain 11/16/19 04/18/23 gabapentin 600 mg tablet 600 mg PO TID 11/16/19 04/18/23 trazodone 50 mg tablet 50 mg PO HS 11/16/19 04/18/23 buspirone 15 mg tablet 15 mg PO TID 04/01/22 04/18/23 losartan 100 mg tablet 100 mg PO DAILY 04/01/22 04/18/23 Allergies Allergy/AdvReac Type Severity Reaction Status Date / Time Penicillins Allergy Severe RESPIRATORY Verified 04/18/23 11:29 / HIVES Review of Systems Review of Systems: All systems reviewed & are unremarkable except as noted in HPI and below Respiratory: Respiratory: Denies dyspnea and Denies wheezing Gastrointestinal: Gastrointestinal: Denies nausea and Denies vomiting [facility] Past Medical History Medical History Acquired hallux valgus of left foot Anxiety Change in bowel habit Chronic headaches Dark stools Depression Diverticulitis Fractured great toe HTN (hypertension) Mild acid reflux Surgical History Surgical History Ear cysts 1971 and 1972, 1988 H/O shoulder surgery Rotator cuff 2005 History of bladder surgery 2000 History of carpal tunnel surgery Left CTR and cubital tunnel release 2013 History of cholecystectomy 2009 History of colon surgery partial colon removal, colostomy bag, and take down. 2000 History of hand surgery Bilateral thumb 2014 History of hernia surgery 2009 History of tubal ligation and ovary removal 1986 Hx of tonsillectomy 1974 Skin mole by rectum 1965 Family History Family History Other Arthritis Dementia Heart disease Hypertension Social History Social History Smoking status: Current every day smoker Tobacco type: e-cigarettes/vaping Additional smoking assessment comments: Former Cigarette smoker, quit on 09/30/21 Alcohol intake: current Substance use: unknown Occupation/Education: retired Gender identity (if verbalized by the patient): Female Exam Const: General: healthy appearing, no acute distress and alert Nutritional Appearance: well nourished Orientation/consciousness: patient oriented x3 Limitations: no limitations HENMT: Head: normal to inspection Ears: external ears normal Face/Nose/Sinus: Normal external nose present Face and sinus: normal facial exam Mouth: Yes moist mucous membranes Eyes: Conjunctivae: conjunctivae normal Pupils: Equal, round and reactive pupils present EOM: EOMs intact bilaterally Neck: Neck: normal visual inspection Resp: Effort & Inspection: normal respiratory effort Auscultation: clear to auscultation bilaterally Cardio: Rate: regular rate Rhythm: regular rhythm GI: GI Palp: Yes Soft to palpation and No Tenderness to palpation present (GI) Auscultation: normal bowel sounds Back/Spine/Pelvis: Cervical Spine: cervical ROM normal Thoracic/Lumbar Spine: thoraco-lumbar ROM normal Skin: General skin exam: normal color Neuro: General: patient oriented x3, moves a
[2023-04-18] MEDS: methylPREDNISolone SOD SUCC 125 MG VIAL IM (11:38)
[2023-04-18 11:49] VITALS: BP 132/79; PULSE 99; RESP 16; TEMP 37.1; O2SAT 96
== END 2023-04-18 11:51 | disposition home or self-care (01) ==
LOC: CHSED 11:43
PROVIDERS: Emergency Provider Emergency Medicine; PCP Internal Medicine
DX: M79.89 Other specified soft tissue disorders (principal); T50.A95A Adverse effect of other bacterial vaccines, initial encounter; F41.9 Anxiety disorder, unspecified; F32.A Depression, unspecified; I10 Essential (primary) hypertension; F17.290 Nicotine dependence, other tobacco product, uncomplicated; Z79.899 Other long term (current) drug therapy
CPT/HCPCS: 96372; 99283; J2930

== ENCOUNTER → 2023-06-13 14:30 | Outpatient (CLI) | payer MEDICARE, MEDICAID, SELFPAY ==
--- NOTE | ~2023-06-13 | MR_ITS ---
EXAMINATION: MR cervical spine wo con DATE: 06/13/2023 15:14 INDICATION: Cervical spinal stenosis TECHNIQUE: Magnetic resonance imaging (MRI) of the cervical spine was performed without intravenous c ontrast. Sequences included sagittal T2-weighted FSE, sagittal T2-weighted FS FSE, sagittal T1-weight ed FSE, axial MERGE and axial T2-weighted FSE. COMPARISON: 04/18/2016 FINDINGS: Mild kyphosis of the lower cervical spine. Cervicothoracic levocurvature curvature. No spondylolisthe sis or facet subluxation. Unchanged chronic minimal anterior wedging at C5-C6 and C7. Bone marrow si gnal intensity is normal. Moderate disc height loss at C5-C6 and C6-C7. Mild disc height loss at C3-C 4 and C6-C7. Cord signal intensity is normal. Visualized cervical soft tissues are unremarkable. The following disc levels are specifically discussed: C2-C3: Disc is mildly bulging. There is mild bilateral uncovertebral joint osteoarthritis. There is s evere left and moderate right facet joint osteoarthritis. There is moderate left neural foraminal latesha nosis. There is no central canal stenosis. C3-C4: Disc is bulging with annular fissure and central disc extrusion with disc material extending 3 mm caudal to the level of the superior endplate of C4. There is severe bilateral uncovertebral joint osteoarthritis. There is moderate right and severe left facet joint osteoarthritis. There is right a nd severe left neural foraminal stenosis. There is mild central canal stenosis with indentation of th e ventral surface of the cord. C4-C5: Disc is mildly bulging with annular fissure. There is mild bilateral uncovertebral joint osteo arthritis. There is mild right and moderate left facet joint osteoarthritis. There is mild bilateral neural foraminal stenosis. There is mild central canal stenosis. C5-C6: Posterior disc osteophyte complex with annular fissure. There is severe bilateral uncovertebra l joint osteoarthritis. There is moderate bilateral facet joint osteoarthritis. There is mild left an d moderate right neural foraminal stenosis. There is moderate central canal stenosis measuring 8 mm A P in the mid sagittal plane with indentation of the left ventral surface of the cord. C6-C7: Disc is bulging with annular fissure. There is severe bilateral uncovertebral joint osteoarthr itis. There is moderate bilateral facet joint osteoarthritis. There is moderate bilateral neural fora kristian stenosis. There is mild central canal stenosis with mild indentation of the left ventral surfac e of the cord. C7-T1: Annular fissure and small central disc extrusion with disc material extending couple millimete r cephalad and caudal to the level of the endplates. There is mild left and moderate right uncoverteb ral joint osteoarthritis. There is severe right and moderate left facet joint osteoarthritis. There i s mild left and moderate right neural foraminal stenosis. There is mild central canal stenosis. IMPRESSION: 1. Minimal progression in moderate to severe cervical spondylosis. Reviewed, dictated and finalized at location A.
== END ==
PROVIDERS: PCP Internal Medicine; Visit Provider Anesthesiology Pain Medicine
DX: M48.02 Spinal stenosis, cervical region (principal); M47.812 Spondylosis without myelopathy or radiculopathy, cervical region
CPT/HCPCS: 72141

== ENCOUNTER 2023-12-17 14:29 | Outpatient (CLI) | payer MEDICARE, SELFPAY ==
--- NOTE | ~2023-12-17 | XR_ITS ---
EXAMINATION: XR chest 2V DATE: 12/17/2023 15:01 INDICATION: Cough. Wheezing. TECHNIQUE: Frontal and lateral views of the chest were obtained. COMPARISON: Chest 2 views 08/01/2021 FINDINGS: There is mild scarring at the lung apices. There are lucencies in the lungs, consistent wit h emphysema. No pleural effusion or pneumothorax. There is normal. There are suture anchors in the hu meral head. IMPRESSION: 1. Emphysema. 2. Stable mild scarring at the lung apices. Reviewed, dictated and finalized at location A. [employer]
[2023-12-17 14:56] LABS: Hematocrit 39.4 % (35.0-42.0); Hemoglobin 13.7 g/dL (11.7-13.8); Mean Corpuscular HGB Conc 34.8 g/dL (32.0-36.0); Mean Corpuscular Hemoglobin 31.9 pg (27.0-31.0); Mean Corpuscular Volume 91.6 fL (78.0-102.0); Mean Platelet Volume 8.4 fl (9.2-11.8); Platelet Count Result 395 K/mm3 (150-420); Red Cell Distribution Width 12.6 % (11.6-14.4)
[2023-12-17 15:07] LABS: White Blood Count 22.2 K/mm3 (4.8-10.8)
[2023-12-17 15:20] LABS: Band Neutrophils Percent 0 % (0-6); Basophils Percent Manual 0 % (0-1); Eosinophils Percent Manual 0 % (1-6); Lymphocytes Absolute Manual 1.55 K/mm3 (1.1-4.5); Lymphocytes Percent Manual 7 % (18-44); Monocytes Absolute Manual 1.33 K/mm3 (0.1-0.90); Monocytes Percent Manual 6 % (3-9); Neutrophils Absolute Manual 18.64 K/mm3 (1.7-7.2); Neutrophils Percent Manual 84 % (46-73); Total Cells Counted 100
[2023-12-17 15:21] LABS: Platelet Estimate Adequate (Adequate)
[2023-12-17 15:23] LABS: Strep Group A RT-PCR NOT DETECTED (Negative)
[2023-12-17 15:32] LABS: SARS-CoV-2 RNA PCR Negative (Negative)
[2023-12-17 16:10] LABS: Influenza A QL RT-PCR Negative (Negative); Influenza B QL RT-PCR Negative (Negative); RSV RNA, RT-PCR Negative (Negative)
== END 2023-12-17 14:30 | disposition home or self-care (01) ==
LOC: CHSLAB 14:33
PROVIDERS: PCP Internal Medicine; Visit Provider Internal Medicine
DX: R05.9 Cough, unspecified (principal); Z20.822 Contact with and (suspected) exposure to COVID-19; J43.9 Emphysema, unspecified; R91.8 Other nonspecific abnormal finding of lung field
CPT/HCPCS: 36415; 71046; 85025; 87637; 87651

== ENCOUNTER 2023-12-26 11:24 | Outpatient (CLI) | payer MEDICARE, SELFPAY ==
[2023-12-26 11:45] LABS: Basophils Absolute Auto 0.15 K/mm3 (0.00-0.10); Basophils Percent Auto 1.2 % (0.0-1.0); Eosinophils Absolute Auto 0.37 K/mm3 (0.02-0.50); Eosinophils Percent Auto 2.9 % (1.0-6.0); Hematocrit 39.5 % (35.0-42.0); Hemoglobin 13.1 g/dL (11.7-13.8); Immature Granulocyte Absolute 0.08 K/mm3 (0.00-0.00); Immature Granulocyte Percent A 0.6 % (0.0-0.0); Lymphocytes Absolute Auto 3.61 K/mm3 (1.10-4.50); Lymphocytes Percent Auto 28.5 % (18.0-42.0); Mean Corpuscular HGB Conc 33.2 g/dL (32.0-36.0); Mean Corpuscular Hemoglobin 31.3 pg (27.0-31.0); Mean Corpuscular Volume 94.5 fL (78.0-102.0); Monocytes Absolute Auto 1.88 K/mm3 (0.10-0.90); Monocytes Percent Auto 14.8 % (2.0-11.0); Neutrophils Absolute Auto 6.6 K/mm3 (1.7-7.2); Platelet Count Result 466 K/mm3 (150-420); Red Blood Count 4.18 M/mm3 (4.20-5.40); Red Cell Distribution Width 13.2 % (11.6-14.4); White Blood Count 12.7 K/mm3 (4.8-10.8)
== END 2023-12-26 11:25 | disposition home or self-care (01) ==
PROVIDERS: PCP Internal Medicine; Visit Provider Internal Medicine
DX: J44.1 Chronic obstructive pulmonary disease with (acute) exacerbation (principal)
CPT/HCPCS: 36415; 85025

== ENCOUNTER 2024-03-03 13:50 | Outpatient (CLI) | payer MEDICARE, SELFPAY ==
--- NOTE | ~2024-03-03 | XR_ITS ---
EXAMINATION: XR_CERV2-3V_CR DATE: 03/03/2024 14:18 INDICATION: Neck pain. Fall. TECHNIQUE: 3 views of cervical spine on 4 radiographs were obtained. COMPARISON: None. FINDINGS: There is kyphosis of cervical spine. There is 12 degrees levoscoliosis of cervical thoracic spine. Vertebral body heights are normal. There is mildly decreased disc height at C3-C4, moderately decreased disc height at C5-C6, and severely decreased disc height at C6-C7. There is multilevel unc overtebral joint osteoarthritis, severe bilaterally at C3-C4, C5-C6, and C6-C7. There is multilevel m ild to moderate facet joint osteoarthritis. There is mild central canal stenosis at C3-C4, C5-C6, and C6-C7. No prevertebral soft tissue swelling. IMPRESSION: 1. Severe cervical spondylosis. 2. Cervicothoracic levoscoliosis. Cervical kyphosis. Reviewed, dictated and finalized at location E.
--- NOTE | ~2024-03-03 | XR_ITS ---
EXAMINATION: XR thoracic spine 3V DATE: 03/03/2024 14:18 INDICATION: Neck pain. Fall. TECHNIQUE: 3 views of thoracic spine were obtained. COMPARISON: None. FINDINGS: There is a degrees dextrocurvature of the lower thoracic spine. Vertebral body heights are normal. There is mildly decreased disc height from T3-T4 through T6-T7 and moderately decreased disc height at T7-T8. There are endplate osteophytes at most levels. There is multilevel facet joint osteo arthritis. IMPRESSION: 1. Moderate thoracic spondylosis. Reviewed, dictated and finalized at location E.
== END 2024-03-03 13:51 | disposition home or self-care (01) ==
LOC: CHSIMG 13:52
PROVIDERS: PCP Internal Medicine; Visit Provider Nurse Practitioner Family
DX: M54.2 Cervicalgia (principal); T14.8XXA Other injury of unspecified body region, initial encounter; W19.XXXA Unspecified fall, initial encounter; M43.04 Spondylolysis, thoracic region; M43.02 Spondylolysis, cervical region; M41.83 Other forms of scoliosis, cervicothoracic region; M40.202 Unspecified kyphosis, cervical region
CPT/HCPCS: 72040; 72072

== ENCOUNTER 2024-03-30 13:49 | Outpatient (CLI) | payer MEDICARE, SELFPAY ==
--- NOTE | ~2024-03-30 | CT_ITS ---
CT of the Abdomen and Pelvis: Indication: Abdominal pain Technique: 2.5 mm axial scans were obtained through the abdomen and pelvis following intravenous adm inistration of 100 cc of Omnipaque 350. Dose reduction technique was used on this scan by utilizing a utomated exposure control and iterative reconstruction technique. The dose-length product (DLP) was 2 89.55 mGy-cm. Findings: Scans through the lung bases are unremarkable. The liver, spleen, pancreas, adrenals and right kidney are within normal limits. Cholecystectomy clip s are present. There is a 3 cm solid left renal mass, suspicious for renal cell carcinoma until prove n otherwise. No evidence of aortic aneurysm. No lymphadenopathy. No bowel obstruction or bowel wall thickening. There is no evidence to suggest acute appendicitis. Pr ominent stool could reflect possible constipation. Rectosigmoid anastomosis noted. Images through the pelvis were performed. Urinary bladder unremarkable. No pelvic mass seen. No ascit es. Impression: 3 cm solid left renal mass is compatible with renal cell carcinoma until proven otherwise. consult ation/oncologic consultation recommended. No evidence of metastatic disease. Findings reported to nurse practitioner Kelley Cole at the time of this reading. Possible constipation. Reviewed, dictated and finalized at location M. Impression: 3 cm solid left renal mass is compatible with renal cell carcinoma until proven otherwise. consultation/oncologic consultation recommended. No evidence of metastatic disease. Findings reported to nurse practitioner Kelley Cole at the time of this reading. Possible constipation.
[2024-03-30 14:25] LABS: Estimated Glomerular Filt Rate > 60
== END 2024-03-30 13:50 ==
LOC: MICIMG 13:50
PROVIDERS: PCP Internal Medicine; Visit Provider Nurse Practitioner Family
DX: R10.12 Left upper quadrant pain (principal); K57.30 Diverticulosis of large intestine without perforation or abscess without bleeding; R19.5 Other fecal abnormalities
CPT/HCPCS: 74177; Q9967

== ENCOUNTER 2025-02-03 13:44 | Outpatient (CLI) | payer MEDICARE, SELFPAY ==
--- NOTE | 2025-02-03 | ECHO_ITS ---
Patient Info Name: Marissa Shoemaker Age: 69 years : 1955 Gender: Female Ht: 60 in Wt: 124 lbs BSA: 1.55 m2 HR: 78 bpm BP: 118 / 69 mmHg Technical Quality: Good Exam Date: 02/03/2025 2:11 PM Exam Location: Echo Lab Patient Status: Outpatient Admit Date: 02/03/2025 Staff Ordering Physician: Romero Ludwig MD Systems Librarian: Tala Westfall RDCS Attending Provider: Romero Ludwig MD Referring Physician: Oziel MCGRATH; Exam Type: CA echo doppler color flow Study Info Indications R01.1 - Cardiac murmur, unspecified Complete two-dimensional, color flow and Doppler transthoracic echocardiogram is performed. Summary 1. Complete two-dimensional, color flow and Doppler transthoracic echocardiogram is performed. 2. Left ventricular chamber dimension is normal. 3. Left ventricular systolic function is normal, estimated at 60-65%. 4. The left ventricular diastolic function is normal. 5. E/e' 9 is minimally elevated. 6. Left atrial chamber dimension is mildly enlarged. 7. There is mild to moderate tricuspid valve regurgitation. 8. Mild pulmonary hypertension, estimated pulmonary arterial systolic pressure is 40 mmHg. 9. There is trace pulmonic regurgitation. 10. Dilated inferior vena cava with >50% collapse upon inspiration consistent with elevated right atrial pressure, 10 mmHg. Left Ventricle E/e' 9 is minimally elevated. Left ventricular chamber dimension is normal. Left ventricular systolic function is normal, estimated at 60-65%. The left ventricular diastolic function is normal. Right Ventricle Right ventricular systolic function is normal and with normal TAPSE 2.5 cm. Right ventricular chamber dimension is normal. Left Atria Left atrial chamber dimension is mildly enlarged. Right Atria Right atrial chamber dimension is normal. Aortic Valve The aortic valve is trileaflet. There is no aortic valve stenosis. There is no aortic valve regurgitation. Pulmonic Valve There is trace pulmonic regurgitation. Mitral Valve There is no mitral valve stenosis. There is no mitral valve regurgitation. Tricuspid Valve There is mild to moderate tricuspid valve regurgitation. Mild pulmonary hypertension, estimated pulmonary arterial systolic pressure is 40 mmHg. Pericardium/Pleural There is no pericardial effusion. Inferior Vena Cava Dilated inferior vena cava with >50% collapse upon inspiration consistent with elevated right atrial pressure, 10 mmHg. Aorta The aortic root size at the sinus of Valsalva is normal. Left Ventricular Outflow Tract Name Value Normal LVOT 2D LVOT Diameter 1.7 cm LVOT Doppler LVOT Peak Gradient 8 mmHg LVOT Mean Gradient 4 mmHg LVOT VTI 28 cm LVOT VTI/AV VTI Ratio 0.9 LVOT Stroke Volume 65 ml LVOT CO 13.9 l/min LVOT CI 8.9 l/min/m2 Pulmonic Valve Name Value Normal PV Doppler PV Peak Gradient 4 mmHg Mitral Valve Name Value Normal MV Doppler MV Decel [place] 282 cm/s2 MV PHT 78 ms MV Area (PHT) 2.8 cm2 4.0-5.0 MV Diastolic Function MV E Peak Velocity 76 cm/s MV A Peak Velocity 59 cm/s MV E/A 1.3 MV Decel Time 268 ms MV Annular TDI MV E/e' (Septal) 11.1 <=8.0 MV E/e' (Lateral) 8.4 <=8.0 MV E/e' (Average) 9.7 Tricuspid Valve Name Value Normal TV Regurgitation Doppler TR Peak Velocity 273 cm/s TR Peak Gradient 30 mmHg Estimated PAP/RSVP RA Pressure 10 mmHg <=5 PA Systolic Pressure 40 mmHg <36 RV Systolic Pressure 40 mmHg <36 Aorta Name Value Normal Ascending Aorta Ao Root Diameter (MM) 3.2 cm Ao Root Diam Index (MM) 2.1 cm/m2 Aortic Valve Name Value Normal AV Doppler AV Peak Velocity 143 cm/s AV Peak Gradient 8 mmHg AV Mean Gradient 5 mmHg AV VTI 32 cm AV Area (Cont Eq VTI) 2.0 cm2 >=3.0 AV Area (Cont Eq Jorge Alberto) 2.3 cm2 AV Regurgitation 2D LVOT Area 2.3 cm2 Ventricles Name Value Normal LV Dimensions 2D/MM IVS Diastolic Thickness (2D) 1.0 cm 0.6-1.0 LVID Diastole (2D) 4.4 cm 3.8-5.2 LVIW Diastolic Thickness (2D) 0.9 cm 0.6-0.9 LVID Systole (2D) 2.9 cm 2.2-3.5 LVOT Diameter 1.7 cm LV Mass (2D Cubed) 131.98 g 67.00-162.00 LV Mass Index (2D Cubed) 85 g/m2 43-95 Relative Wall Thickness (2D) 0.40 LV Fractional Shortening/Ejection Fraction 2D/MM LV Fractional Shortening (2D) 33 % 27-45 LV EF (2D Teicholz) 62 % 54-74 LV Diastolic Volume (4C MOD) 78 ml LV EF (4C MOD) 73 % LV Diastolic Volume (2C MOD) 67 ml LV EF (2C MOD) 67 % LV Diastolic Volume (BP MOD) 76 ml 46-106 LV Diastolic Volume Index (BP MOD) 49 ml/m2 29-61 LV Systolic Volume (BP MOD) 22 ml 14-42 LV Systolic Volume Index (BP MOD) 14 ml/m2 8-24 LV EF (BP MOD) 71 % 54-74 LV Diastolic Length (4C) 7.4 cm LV Systolic Length (4C) 6.0 cm LV Stroke Volume (4C MOD) 57 ml RV Dimensions 2D/MM RVID Diastole (2D) 3.5 cm 2.5-3.5 Atria Name Value Normal LA Dimensions LA Volume (4C A-L) 35 ml LA Volume (BP A-L) 52 ml RA Dimensions RA Area (4C) 12.4 cm2 <=18.0 Report Signatures
--- OUTSIDE RECORDS SUMMARY | 2025-02-03 14:03 | XMS_ITS | Clinical Summary ---
Author Organization [facility] Address [address] [place] [address] Care Team Providers Care Casing In Line Feeder Name Role Phone Romero Ludwig MD Primary Care Provider + [phone] Allergies Active Allergy Reactions Criticality Noted Date Comments Penicillins Hives,Itching,Swelling Medium Eyes swollen Medications cyclobenzaprine (FLEXERIL) 10 mg tabletIndicatio ns:Muscle Spasm Take 1 tablet (10 mg total) by mouth 3 (three) times a day as needed for muscle spasms Active diphenhydrAMINE (BENADRYL ALLERGY) 25 mg tablet Take 1 tablet/capsule (25 mg total) by mouth nightly as needed for sleep Active albuterol HFA (PROVENTIL HFA,VENTOLIN HFA,PROAIR HFA) 90 mcg/actuation inhaler Inhale 2 puffs 2 (two) times a day as needed for wheezing or shortness of breath 4 Active amLODIPine (NORVASC) 5 mg tablet Take 1 tablet (5 mg total) by mouth every morning 4 Active losartan (COZAAR) 100 mg tablet Take 1 tablet (100 mg total) by mouth nightly 4 Active meloxicam (MOBIC) 7.5 mg tablet Take 1 tablet (7.5 mg total) by mouth 2 (two) times a day 4 Active omeprazole (PriLOSEC) 40 mg capsule Take 1 capsule (40 mg total) by mouth nightly 4 Active triamcinolone (KENALOG) 0.1 % lotion Apply 1 Application topically 2 (two) times a day as needed for rash or irritation 4 Active buPROPion SR (WELLBUTRIN SR) 150 mg 12 hr tablet Take 1 tablet (150 mg total) by mouth 2 (two) times a day 4 Active busPIRone (BUSPAR) 15 mg tablet Take 1 tablet (15 mg total) by mouth 3 (three) times a day 4 Active gabapentin (NEURONTIN) 600 mg tablet Take 1 tablet (600 mg total) by mouth 3 (three) times a day 4 Active HYDROcodone-renetta taminophen (NORCO) 7.5-325 mg per tabletIndicatio ns:Pain Take 1 tablet by mouth 3 (three) times a day as needed for pain 4 Active naloxone (NARCAN) 4 mg/actuation spray,non-aeros ol Administer 1 spray into affected nostril(s) as needed for opioid reversal or respiratory depression Call 911. Administer a single spray in one nostril. Repeat every 3 minutes as needed if no or minimal response. 1 each 4 Active Additional Information Patient taking differently:1 spray nasal As needed, opioid reversal, respiratory depression, Call 911. Administer a single spray in one nostril. Repeat every 3 minutes as needed if no or minimal response.,Indications: Opiate-Induced Respiratory Depression, Opioid Toxicity, Informant: Self, Reported on 05/11/2024 cholecalciferol (VITAMIN D-3) 25 mcg (1,000 unit) tablet Take 1 tablet (1,000 Units total) by mouth every morning Active loratadine (CLARITIN) 10 mg tablet Take 1 tablet (10 mg total) by mouth daily as needed for allergies Active acetaminophen-c affeine 500-65 mg tablet Take 1 tablet by mouth every morning Active polyethylene glycol (MIRALAX) 17 gram/dose bulk powder Take 17 g by mouth daily as needed (constipation) Active nicotine (NICODERM CQ) [address] 1 patch on the skin daily Active acetaminophen 500 mg capsuleIndicati ons:Pain Take 2 capsules (1,000 mg total) by mouth every 6 (six) hours as needed for pain 120 tablet 4 Active oxyCODONE (ROXICODONE) 5 mg immediate release tabletIndicatio ns:Pain Take 1 tablet (5 mg total) by mouth every 6 (six) hours as needed for pain DO NOT TAKE in combination with prescribed [place] pain medication. Take for pain unrelieved by tylenol. 8 tablet Active Additional Information Patient not taking.Reported on 08/02/2024 Active Problems Problem Noted Date Diagnosed Date Osteopenia of multiple sites 10/01/2024 Acute postoperative pain 05/21/2024 Renal mass 04/29/2024 Strain of muscle, fascia and tendon of abdomen, initial encounter 06/26/2017 Assessment & Plan (06/26/2017 3:48 PM CDT): The patient is encouraged to take NSAIDS with meals and reduce activity that aggravates the pain such as lifting and straining. Please call if pain does not improve in 4 weeks. Resolved Problems Problem Noted Date Diagnosed Date Resolved Date Cervical pain (neck) 10/08/2013 024 Encounters Date Type Department Care Team Description 12/07/2024 11:20 AM MERCHANT MARINER Office Visit [facility]) - [facility] [address] [place] [address] Advanced Medicine [address] [place] [address] Deepti Torres MD Renal mass (Primary Dx) 12/07/2024 9:03 AM MERCHANT MARINER - 12/07/2024 11:59 PM MERCHANT MARINER Hospital Encounter [facility] [address] [place] [id number] Deepti Torres MD Renal cell cancer, left (HCC) Discharge Disposition: Discharge to home or self care 12/07/2024 Results Follow-Up [facility] ([facility]) - [facility] [address] [place] [address] Advanced Medicine [address] [place] [address] Deepti Torres MD from Last 3 Months Surgical History Surgery Date Site/Laterality Comments COLECTOMY 10/20/2000 - 10/19/2001 Colectomy OTHER SURGICAL HISTORY 10/20/2004 - 10/19/2005 surgery ozzy. shoulders OTHER SURGICAL HISTORY 10/20/2000 - 10/19/2001 colostomy reversal OTHER SURGICAL HISTORY 10/20/2008 - 10/19/2009 repair ventral hernia CHOLECYSTECTOMY 10/20/2008 - 10/19/2009 Cholecystectomy HYSTERECTOMY Hysterectomy HERNIA REPAIR Hernia repair VAGINAL HYSTERECTOMY Hysterectomy, vaginal OTHER SURGICAL HISTORY hands, elbows, thumbs TONSILLECTOMY Medical History Medical History Date Comments Anxiety disorder Anxiety Depression Depression Hx Other Medical 2009 gallbladder; Co mments: [facility] 07/18/2014 - Cervical pain (neck) 10/08/2013 Hypertension Chronic kidney disease Family History Medical History Relation Name Comments Cancer Father Cancer, unknown ; Coronary artery disease Father Angelina nary artery disease; Hypertension Father Hypertension; Cancer Mother Cancer, unknown ; Coronary artery disease Mother Angelina nary artery disease; Melanoma Mother Melanoma; Osteoporosis Mother Heart disease Other Family history of Heart disease; Diabetes Paternal Grandfather Diabete s mellitus; Diabetes Paternal Grandmother Diabete s mellitus; Kidney cancer Sister Cancer, kidney ; Anesthesia problems Neg Hx Broken bones Neg Hx Hip fracture Neg Hx Kyphosis Neg Hx Scoliosis Neg Hx Relation Name Status Comments Father Mother Other Paternal Grandfather Paternal Grandmother Sister Social History Tobacco Use Types Packs/Day Years Used Date Smoking Tobacco: Every Day Cigarettes 1 49 Started: 1974; Last attempted to quit: 04/22/2024 Passive Smoke Exposure: Past Smokeless Tobacco: Never Tobacco Cessation:Ready to Q uit: Not Asked; Counseling Given: Not Answered Alcohol Use Standard Drinks/Week Comments Yes 0 (1 standard drink = 0.6 oz pur e alcohol) occasionally AUDIT-C Answer Date Recorded Q1: How often do you have a drink containing alc ohol? Monthly or less 05/21/2024 Q2: How many drinks containi ng alcohol do you have on a typical day when you are drinking? 1 or 2 05/21/2024 Q3: How often do you have si x or more drinks on one occasion? Never 05/21/2024 Personal Safety Answer Date Recorded Have you ever been in or are you currently in a harmful physical or emotional relationship or is someone making you feel afraid or unsafe? Denies 05/21/2024 Comments No Sex and Gender Information Value Date Recorded Sex Assigned at Not on file Legal Sex Female 6:33 PM MERCHANT MARINER Gender Identity Not on file Sexual Orientation Not on file Obstetrics History Last Filed Vital Signs Vital Sign Reading Time Taken Comments Blood Pressure 138/65 05/22/2024 4:05 PM CDT Pulse 80 05/22/2024 4:05 PM CDT Temperature 36.5 C (97.7 F) 05/22/2024 4:05 PM CDT Respiratory Rate 16 05/22/2024 4:05 PM CDT Oxygen Saturation 94% 05/22/2024 4:05 PM CDT Inhaled Oxygen Concentration - - Weight 55.2 kg (121 lb 12.8 oz) 08/02/2024 1:28 PM CDT Height 153.7 cm (5' 0.5 ) 08/02/2024 1:28 PM CDT Body Mass Index 23.4 08/02/2024 1:28 PM CDT Plan of Treatment Health Maintenance Due Date Last Done Comments Breast Cancer Screening-Mammogram 1955 Depression Screening 1955 Hepatitis C Screening 1955 Hepatitis B Screening 1975 DTaP/Tdap/Td Vaccine (1 - Tdap) 01/24/2001 1 Lung Cancer Screening 2007 Zoster Vaccine (1 of 2) 2007 Well Visit 65+ 2022 Covid-19 Vaccine (2 - 2023-2 5 season) 2024 05/15/2021 Colon Cancer Screening-Colonoscopy 07/08/2024 07/08/2014, 07/08/2014 Fall Risk Assessment 05/22/2025 05/22/2024 Influenza Vaccine (Season Ended) 2025 08/31/2020, 09/14/2013, 07/20/2013 Osteoporosis Screening-Bone Density Scan 08/02/2026 08/02/2024 Colon Cancer Screening-CT Colonography Discontinued 07/08/2014, 07/08/2014 Colon Cancer Screening-DNA Stool Discontinued 07/08/20 14, 07/08/2014 Colon Cancer Screening-FIT Discontinued 07/08/2014, Colon Cancer Screening-Sigmoidoscopy Discontinued 07/08/2014, 07/08/2014 Pneumococcal vaccine 65+ Completed 023, 03/28/2022, 06/18/2016, Additional history exists Procedures Procedure Name Priority Date/Time Associated Diagnosis Comments CT CHEST ABDOMEN W CONTRAST Schedule Routine, Read Routine (OP Routine) 12/07/2024 9:43 AM MER[facility] MARINER Renal cell cancer, left (HCC) POCT CREATININE - DEVICE Routine 12/07/2024 9:24 AM MERCHANT MARINER DEXA TBS AXIAL SKELETON BONE DENSITY 1 OR MORE SITES Schedule Routine, Read Routine (OP Routine) 08/02/2024 12:15 PM CDT Age-related osteoporosis without current pathological fracture COLONOSCOPY IMAGES 07/08/2014 from Last 3 Months or Most Recently Relevant to Health Maintenance Results * CT Chest Abdomen W Contrast (12/07/2024 9:43 AM MERCHANT MARINER) Anatomical Region Laterality Modality Body N/A Computed Tomogra phy 12/07/2024 4:10 PM MERCHANT MARINER Impressions 12/07/2024 4:10 PM MERCHANT MARINER Changes of left nephrectomy without evidence of recurrent or metastatic disease. Electronically signed by: Wei Suarez M.D. Narrative 12/07/2024 4:10 PM MERCHANT MARINER Examination: Computed tomography of the chest and abdomen with intravenous contrast DATE: 12/07/2024. HISTORY: Renal cell cancer. TECHNIQUE: Computed tomography of the chest and abdomen was obtained after the uneventful administration of 69 mL of Optiray 350 according to standard protocol. FINDINGS: Comparison is made to 03/30/2024. No supraclavicular, axillary, mediastinal, or hilar lymphadenopathy. Heart size is normal, no pericardial effusion. There is a small mucus in the trachea. There is a background of emphysema. No suspicious pulmonary nodules or masses. No consolidation, effusion, or pneumothorax. No hepatic lesions or biliary ductal dilatation. There are cholecystectomy clips. Spleen is normal. Pancreas is normal. Adrenals are normal. There is a 9 x 8 mm intermediate attenuating lesion in the posterior right kidney that previously measured 8 x 7 mm; this was characterized as a hemorrhagic cyst on 04/27/2024 MRI. There are changes of a left nephrectomy without evidence of local recurrence. No lymphadenopathy. The bowel is normal. Bone windows demonstrate no lytic or blastic lesions. Procedure Note Wei Suarez MD - 12/07/2024 Examination: Computed tomography of the chest and abdomen with intravenous contrast DATE: 12/07/2024. HISTORY: Renal cell cancer. TECHNIQUE: Computed tomography of the chest and abdomen was obtained after the uneventful administration of 69 mL of Optiray 350 according to standard protocol. FINDINGS: Comparison is made to 03/30/2024. No supraclavicular, axillary, mediastinal, or hilar lymphadenopathy. Heart size is normal, no pericardial effusion. There is a small mucus in the trachea. There is a background of emphysema. No suspicious pulmonary nodules or masses. No consolidation, effusion, or pneumothorax. No hepatic lesions or biliary ductal dilatation. There are cholecystectomy clips. Spleen is normal. Pancreas is normal. Adrenals are normal. There is a 9 x 8 mm intermediate attenuating lesion in the posterior right kidney that previously measured 8 x 7 mm; this was characterized as a hemorrhagic cyst on 04/27/2024 MRI. There are changes of a left nephrectomy without evidence of local recurrence. No lymphadenopathy. The bowel is normal. Bone windows demonstrate no lytic or blastic lesions. IMPRESSION: Changes of left nephrectomy without evidence of recurrent or metastatic disease. Electronically signed by: Wei Suarez M.D. Deepti Torres MD IMG CT PROCEDURES Final Result * POCT creatinine (12/07/2024 9:24 AM MERCHANT MARINER) Creatinine POC 1.0 0.6 - 1.1 mg/dL Blood 12/07/2024 9:24 AM MERCHANT MARINER 12/07/2024 9:24 AM MERCHANT MARINER us Romero Ludwig MD LAB POCT ORDERABLES - DEVICE Final Result [facility] Department [place] [address] * Dexa TBS Axial Skeleton Bone Density 1 or more sites (08/02/2024 12:15 PM CDT) Anatomical Region Laterality Modality Wrist, Body N/A Radiographic Fani ging Narrative 08/03/2024 12:00 PM CDT Patient Name: Marissa Shoemaker Date of : 1955 Date of scan: 08/02/2024 Bone mineral density was performed on a HoloExperifun Discovery Densitometer. Based on machine cross-calibration and precision studies the least significant changes of this densitometer is 0.024 g/cm2 at the spine, 0.020 g/cm2 at the total proximal femur, and 0.014g/cm2 at the forearm. HISTORY: This is a 69 y.o. postmenopausal female with a history of osteoporosis. She reports that she quit smoking about 3 months ago. Her smoking use included cigarettes. She started smoking about 49 years ago. She has a 49 pack-year smoking history. She has been exposed to tobacco smoke. She has never used smokeless tobacco. Currently on treatment with vitamin D, previously treated with glucocorticoids, and current complaint of back pain and neck pain. INDICATIONS: Menopause status, history of glucocorticoids use, and history of osteoporosis. FINDINGS: BONE MINERAL DENSITY OF THE LUMBAR SPINE Bone Mineral Density (BMD) of the lumbar spine was measured from L1-L4 and the average density was calculated to be 0.795 gm/cm2. This corresponds to a T-score (standard deviations from the mean of young adults) of -2.3. There is no previous study available for comparison. BONE MINERAL DENSITY OF THE PROXIMAL FEMUR Bone Mineral Density (BMD) of the left hip total was found to be 0.669 gm/cm2. This corresponds to a T-score standard deviations from the mean of young adults of -2.2. Femoral neck is 0.558 gm/cm2 with a T-score (standard deviations from the mean of young adults) of -2.6. There is no previous study available for comparison. SUMMARY: Bone mineral density shows evidence of osteoporosis and marked increase risk of fracture. The lumbar spine Trabecular Bone Score is 1.289 which suggests partially degraded bone microarchitecture compared to the general population. Final decisions regarding diagnostic or therapeutic recommendations should include BMD, TBS, additional clinical risk factors as well the clinical context of the patient. Please see attached TBS results for further details. ADDITIONAL COMMENTS: Postmenopausal Women and Men Over 50: Diagnostic criteria: Osteoporosis: BMD at or below -2.5 T-score; Osteopenia (low bone mass): BMD between -1.0 and -2.5 T-score. If the patient has a history of a fragility fracture, a fracture that occurred with trauma equivalent to a fall from a standing position or less, then the diagnosis is osteoporosis regardless of bone density. The history and data sections of the bone mineral density scan were prepared by Evonne Berrios) CBDT who is accredited by the International Society of Clinical Densitometry. The overall patient assessment and scan interpretation were performed by Desmond Moreno MD who is certified by the International Society of Clinical Densitometry. [id number] Desmond Moreno MD IMG DXA PROCEDURES Final Result * COLONOSCOPY IMAGES (07/08/2014) Anatomical Region Laterality Modality Other Narrative 07/08/2014 Ordered by an unspecified provider. Historical Provider GI PROCEDURE ORDERABLES F inal Result from Last 3 Months or Most Recently Relevant to Health Maintenance Insurance [employer] MEDICARE PPO [employer] MEDICARE PPO Advance Directives For more information, please contact: [phone] * Full Code (Latest Code Status on File) Date Activated Date Inactivated Comments 05/21/2024 8:07 PM 05/22/2024 8:24 PM Care Teams Casing In Line Feeder Relationship Specialty Start Date End Date Romero Ludwig MD [address] [place] [address] PCP - General 08/21/09
--- OUTSIDE RECORDS SUMMARY | 2025-02-03 14:03 | XMS_ITS | Clinical Summary ---
Author Organization [facility] Address [address] [place] [id number] Care Team Providers Care Fuel Attendant Name Role Phone Unavailable Primary Care Provider Unavailabl e Social History Tobacco Use Types Packs/Day Years Used Date Smoking Tobacco: Never Assessed Comments Unknown Sex and Gender Information Value Date Recorded Sex Assigned at Not on file Legal Sex Female 6:06 PM CDT Gender Identity Not on file Sexual Orientation Not on file Plan of Treatment Health Maintenance Due Date Last Done Comments Colorectal Cancer Screening Colonoscopy (10 Years) 1955 Hepatitis C 1975 DTaP, Tdap and Td Vaccines ( 1 - Tdap) 1976 Mammogram Screening 1997 Pneumococcal Vaccine: 50+ Ye ars (1 of 1 - PCV) 2007 Zoster Vaccines (1 of 2) 2007 Dexa Scan (General) 2022 COVID-19 Vaccine ( - 2023-2 5 season) 2024 RSV Immunization or 60+ Years (1 - 1-dose 75+ series) 2032 Meningococcal B Vaccine Aged Out No l onger eligible based on patient's age to complete this topic Meningococcal Vaccine Aged Out No diana ying eligible based on patient's age to complete this topic RSV Immunizations Under 20 Months Aged Out No longer eligible based on patient's age to complete this topic
--- OUTSIDE RECORDS SUMMARY | 2025-02-03 14:03 | XMS_ITS | Encounter Summary ---
Author Organization [facility] Address [address] [place] [address] Care Team Providers Care Hop Strainer Name Role Phone Unavailable Primary Care Provider Unavailabl e Encounter Details Date Type Department Care Team (Late st Contact Info) Description 01/03/2018 Abstract [facility] CONVERSION [address] [place] [address] , Generic Conversion, Social History Tobacco Use Types Packs/Day Years Used Date Smoking Tobacco: Never Assessed Comments Unknown Sex and Gender Information Value Date Recorded Sex Assigned at Not on file Legal Sex Female 6:06 PM CDT Gender Identity Not on file Sexual Orientation Not on file documented as of this encounter Plan of Treatment Not on file documented as of this encounter Visit Diagnoses Not on filedocumented in this encounter
--- OUTSIDE RECORDS SUMMARY | 2025-02-03 14:03 | XMS_ITS | Encounter Summary ---
Author Organization [facility] Address [address] [place] [address] Phone Care Team Providers Care Wood Room Hand Name Role Phone Romero Ludwig MD Primary Care Provider [phone] Encounter Details Date Type Department Care Team (Latest Contact Info) Description 08/24/2021 Orders Only [facility] Scanning, Provider Social History Tobacco Use Types Packs/Day Years Used Date Smoking Tobacco: Every Day Cigarettes Smokeless Tobacco: Never Alcohol Use Standard Drinks/Week Comments Yes 0 (1 standard drink = 0.6 oz pur e alcohol) occasionally Comments Unknown Sex and Gender Information Value Date Recorded Sex Assigned at Not on file 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 Gender Identity Not on file Sexual Orientation Not on file documented as of this encounter Plan of Treatment Not on file documented as of this encounter Procedures Procedure Name Priority Date/Time Associated Diagnosis Comments CARDIOLOGY DOCUMENT SCAN 08/24/2021 documented in this encounter Results * SCAN - CARDIOLOGY (08/24/2021) Anatomical Region Laterality Modality Other us Provider Scanning CV CARDIAC SERVICES PROCEDURES Final Result documented in this encounter Visit Diagnoses Not on filedocumented in this encounter Care Teams Wood Room Hand Relationship Specialty Start Date End Date Romero Ludwig MD [address] [place] [address] PCP - General 08/21/09 documented as of this encounter
--- OUTSIDE RECORDS SUMMARY | 2025-02-03 14:03 | XMS_ITS | Encounter Summary ---
Author Organization [facility] Address [address] [facility] [address] [place] [address] Phone Care Team Providers Care Medical Editor Name Role Phone Romero Ludwig MD Primary Care Provider [phone] Encounter Details Date Type Department Care Team (Late st Contact Info) Description 12/07/2024 Results Follow-Up [facility] ([facility]) [facility] [address] [facility] Advanced Medicine 11th [place] [address] [place] [address] Deepti Torres MD [address] [facility] [place] [address] Social History Tobacco Use Types Packs/Day Years Used Date Smoking Tobacco: Every Day Cigarettes 1 49 Started: 1974; Last attempted to quit: 04/22/2024 Passive Smoke Exposure: Past Smokeless Tobacco: Never Alcohol Use Standard Drinks/Week [...] on file 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
--- OUTSIDE RECORDS SUMMARY | 2025-02-03 14:03 | XMS_ITS | Clinical Summary ---
Author Organization [facility] Address [address] [place] [address] Phone Care Team Providers Care Trestle Mechanic Name Role Phone Romero Ludwig MD Primary Care Provider Allergies Active Allergy Reactions Criticality Noted Date Comments Penicillins Unknown 05/04/2018 Social History Tobacco Use Types Packs/Day Years Used Date Smoking Tobacco: Never Assessed Comments Unknown Sex and Gender Information Value Date Recorded Sex Assigned at Not on file Legal Sex Female 4:07 PM CDT Gender Identity Not on file Sexual Orientation Not on file Last Filed Vital Signs Vital Sign Reading Time Taken Comments Blood Pressure - - Pulse - - Temperature - - Respiratory Rate - - Oxygen Saturation - - Inhaled Oxygen Concentration - - Weight 54.9 kg (121 lb) 05/04/2018 8:55 AM CDT Height - - Body Mass Index - - Plan of Treatment Health Maintenance Due Date Last Done Comments Hepatitis C Virus (HCV) Screening 1955 TdaP Immunization 1955 Colonoscopy 2002 Colorectal Cancer Screening 2002 Cologuard 2007 Immunochemical Fecal Occult Blood 2007 Zoster Immunization (1 of 2) 2007 Pneumococcal Immunization (5 0+ years) (3 of 3 - PCV20 or PCV21) 06/18/2021 06/18/2016, 09/05/2014, 06/30/2009 Influenza Immunization (#1) 2024 09/14/2013 SARS-COV-2 Immunization ( season) 2024 05/15/2021 Respiratory Syncytial Virus (RSV) Immunization (Adult) (1 - 1-dose 75+ series) 2032 DTaP/Tdap/Td Immunization Discontinued 01/23/2001 Pneumococcal Immunization Combined Discontinued 06/18/2016, 09/05/2014, 06/30/2009 Hepatitis B Immunization Aged Out No longer eligible based on patient's age to complete this topic Meningococcal Immunization (ACWY) Aged Out No longer eligible based on patient's age to complete this topic Rotavirus Immunization Aged Out No lo nger eligible based on patient's age to complete this topic Insurance MEDICAID [employer] Care Teams Trestle Mechanic Relationship Specialty Start Date End Date Romero Ludwig MD [address] [place] [address] PCP - General Internal Medicine 04/30/18
--- OUTSIDE RECORDS SUMMARY | 2025-02-03 14:03 | XMS_ITS | Referral Summary ---
Author Organization [facility] Address [address] [place] [address] Care Team Providers Care Shrimp Boat Captain Name Role Phone Romero Ludwig MD Primary Care Provider [phone] Encounters Date Type Department Care Team Description 12/07/2024 Results Follow-Up [facility] ([facility]) [facility] [address] [place] [address] Advanced Medicine 11th [place] [address] Deepti Torres MD 12/07/2024 9:03 AM MOLD SHIFTER - 12/07/2024 11:59 PM MOLD SHIFTER Hospital Encounter [facility] [address] [place] [address] Deepti Torres MD Renal cell cancer, left (HCC) Discharge Disposition: Discharge to home or self care 12/07/2024 11:20 AM MOLD SHIFTER Office Visit [facility] ([facility]) [facility] [address] [place] [address] Medicine 11th [place] [address] [place] [address] Deepti Torres MD Renal mass (Primary Dx) from Last 3 Months Allergies Active Allergy Reactions Criticality Noted Date [...] DO NOT TAKE in combination with prescribed [place] pain medication. Take for pain unrelieved by tylenol. 8 tablet 4 Active Additional Information Patient not taking.Reported on [...] Resolved Date Cervical pain (neck) 10/08/2013 024 Social History Tobacco Use Types Packs/Day Years [...] on file Legal Sex Female 6:33 PM MOLD SHIFTER Gender Identity Not on file Sexual Orientation [...] 08/02/2024 1:28 PM CDT Plan of Treatment Not on file Procedures Procedure Name Priority Date/Time Associated Diagnosis Comments CT CHEST ABDOMEN W CONTRAST Schedule Routine, Read Routine (OP Routine) 12/07/2024 9:43 AM MOLD SHIFTER Renal cell cancer, left (HCC) POCT CREATININE - DEVICE Routine 12/07/2024 9:24 AM MOLD SHIFTER DEXA TBS AXIAL SKELETON BONE DENSITY 1 OR MORE SITES Schedule Routine, Read Routine (OP Routine) 08/02/2024 12:15 PM CDT Age-related osteoporosis without current pathological fracture COLONOSCOPY IMAGES 07/08/2014 from Last 3 Months or Most Recently Relevant to Health Maintenance Results * CT Chest Abdomen W Contrast (12/07/2024 9:43 AM MOLD SHIFTER) Anatomical Region Laterality Modality Body N/A Computed Tomogra phy 12/07/2024 4:10 PM MOLD SHIFTER Impressions 12/07/2024 4:10 PM MOLD SHIFTER Changes of left nephrectomy without evidence of recurrent or metastatic disease. Electronically signed by: Wei Suarez M.D. Narrative 12/07/2024 4:10 PM MOLD SHIFTER Examination: Computed tomography of the chest and [...] Result * POCT creatinine (12/07/2024 9:24 AM MOLD SHIFTER) Creatinine POC 1.0 0.6 - 1.1 mg/dL Blood 12/07/2024 9:24 AM MOLD SHIFTER 12/07/2024 9:24 AM MOLD SHIFTER Romero Ludwig MD LAB POCT ORDERABLES - DEVICE Final Result [facility] Department [place] [address] * Dexa TBS Axial Skeleton Bone Density 1 or more sites (08/02/2024 12:15 PM CDT) Anatomical Region Laterality Modality Wrist, Body N/A Radiographic Fani ging Narrative 08/03/2024 12:00 PM CDT Patient Name: Marissa Shoemaker Date of : 1955 Date of scan: 08/02/2024 Bone mineral density was performed on a [employer] Discovery Densitometer. Based on machine cross-calibration and [...] density scan were prepared by Evonne Berrios) JONI who is accredited by the International Society of Clinical Densitometry. The overall patient assessment and scan interpretation were performed by Desmond Moreno MD who is certified by the International Society of Clinical Densitometry. [id number] Desmond Moreno MD IMG DXA PROCEDURES Final Result * COLONOSCOPY IMAGES (07/08/2014) Anatomical Region Laterality Modality Other Narrative 07/08/2014 Ordered by an unspecified provider. Historical Provider GI PROCEDURE ORDERABLES F inal Result from Last 3 Months or Most Recently Relevant to Health Maintenance Insurance [employer] MEDICARE PPO [employer] CHOICE MEDICARE PPO Advance Directives For more information, please contact: [phone] * Full Code (Latest Code Status on File) Date Activated Date Inactivated Comments 05/21/2024 8:07 PM 05/22/2024 8:24 PM Care Teams Shrimp Boat Captain Relationship Specialty Start Date End Date Romero Ludwig MD [address] [place] [address] PCP - General 08/21/09
== END 2025-02-03 13:45 | disposition home or self-care (01) ==
PROVIDERS: PCP Internal Medicine; Visit Provider Internal Medicine
DX: R93.1 Abnormal findings on diagnostic imaging of heart and coronary circulation (principal); R01.1 Cardiac murmur, unspecified
CPT/HCPCS: 93306

== ENCOUNTER 2025-02-04 14:09 | Outpatient (CLI) | payer MEDICARE, SELFPAY ==
--- NOTE | ~2025-02-04 | US_ITS ---
Ultrasound EXAMINATION: US carotid duplex BI DATE: 02/04/2025 15:12 INDICATION: Bilateral carotid bruits TECHNIQUE: Grayscale, color Doppler, and pulsed Doppler images of the cervical carotid arteries were obtained. The degree of vessel stenosis is placed in one of the following categories: normal, <50%, 5 0-69%, >=70% but less than near-occlusion, near-occlusion, or total occlusion. Note that percent sten osis relative to normal distal artery lumen diameter is indirectly measured from velocity measurement s as described by Norris, et al. Radiology 2003; 229:340-346. Notes: Normal: Peak systolic velocity <125 centimeters/sec and no plaque <50%. Peak systolic velocity <125 ( EDV <40; ICA/CCA PSV ratio <2.0; used these factors only a tandem lesions or low cardiac output or co ntralateral disease) 50-69 %: PSV 125-230 (EDV 40-100; ratio 2-4) >= 70% but less than near occlusion: PSV greater than 230 (EDV > 100; ratio> 4.0) Near Occlusion: PSV that is variable; markedly narrowed lumen Occlusion: Absent flow on color/spectral Doppler and no lumen on leach scale. COMPARISON: None. FINDINGS: RIGHT: The right common carotid artery (CCA) peak systolic velocity (PSV) is 93 cm/s. The right internal car otid artery (ICA) PSV is 93 cm/s. The right ICA end-diastolic velocity (EDV) is 27 cm/s. The right IC A/CCA PSV ratio is 1.0. The external carotid artery (ECA) PSV is 88 cm/s. There is antegrade flow in the right vertebral artery. LEFT: The left CCA PSV is 107 cm/s. The left ICA PSV is 111 cm/s. The left ICA EDV is 27 cm/s. The left ICA /CCA PSV ratio is 1.0. The ECA PSV is 78 cm/s. There is antegrade flow in the left vertebral artery. IMPRESSION: 1. Less than 50% stenosis in the right internal carotid artery by sonographic criteria. 2. Less than 50% stenosis in the left internal carotid artery by sonographic criteria. Reviewed, dictated and finalized at location B. IMPRESSION: 1. Less than 50% stenosis in the right internal carotid artery by sonographic c teresa. 2. Less than 50% stenosis in the left internal carotid artery by sonographic cr tania.
--- OUTSIDE RECORDS SUMMARY | 2025-02-04 14:22 | XMS_ITS | Clinical Summary ---
Author Organization [facility] Address [address] [place] [address] Phone Care Team Providers Care Stone Unloader Name Role Phone TONIA LAIRD, DIONNE Freeman Primary Care Provider [phone] ERICK LAIRD, SAJI Unavailable Unavailable Reason for Visit and Chief Complaint The Chief Complaint is: discuss injections Plan of Treatment No Plan of Treatment Recorded Assessments Includes: Assessments from this encounter Findings - Localized primary osteoarthritis of cervical vertebrae [M47.812 - Spondylosis without myelopathy or radiculopathy, cervical region] - Last Documented On 11/11/2018 3:53PM ; [facility] - Cervical spondylosis [M47.892 - Other spondylosis, cervical region] - Last Documented On 11/11/2018 3:53PM ; [facility] - Cervical spine stenosis [M48.02 - Spinal stenosis, cervical region] - Last Documented On 11/11/2018 3:53PM ; [facility] - Chronic pain syndrome [G89.4 - Chronic pain syndrome] - Last Documented On 11/11/2018 3:53PM ; [facility] - profile trimmer use of opiate analgesic [Z79.891 - detention (current) use of opiate analgesic] - Last Documented On 11/11/2018 3:53PM ; [facility] Medical Equipment - Implanted Devices Includes: Current Devices No Medical Equipment Recorded Medications Includes: Medications discussed during this encounter and other current Medications New / Renewed during this visit SANDOR MENCHACA on 11/11/2018 Hydrocodone-Acetaminophen 7. 5-325MG Oral Tablet Provider: SANDOR MENCHACA 30 day supply: 45 tablet, 0 refills Diagnosis: Spinal stenosis, cervical region 1 po BID x 15 days, 1 QD x 15 days Pharmacy: [address], [phone] - Last Documented On 9 9:19AM By SANDOR MENCHACA ; [facility] Current Medications (continue as prescribed) HYDROcodone-Acetaminophen 7. 5-325MG Oral Tablet 12/10/2018 Provider: SANDOR MENCHACA Diagnosis: Spinal stenosis, cervical region 1 po qd prn Last Documented On 9 9:28AM By SANDOR ROSALES ; [facility] Losartan Potassium 25MG Oral Tablet 07/14/2018 Provi sue: Diagnosis: once daily Last Documented On 8 3:45PM By YENY SHI ; [facility] Cyclobenzaprine HCl 10MG Oral Tablet 07/14/2018 Prov ider: Diagnosis: as needed Last Documented On 8 3:45PM By YENY SHI ; [facility] TraZODone HCl 50MG Oral Tablet 07/14/2018 Provider: Diagnosis: once at bedtime Last Documented On 8 3:44PM By YENY SHI ; [facility] Gabapentin 300MG Oral Capsule 07/14/2018 Provider: Diagnosis: 2 capsules twice daily Last Documented On 8 3:44PM By YENY SHI ; [facility] BusPIRone HCl 15MG Oral Tablet 07/14/2018 Provider: Diagnosis: twice daily Last Documented On 8 3:44PM By YENY SHI ; [facility] BuPROPion HCl ER (XL) 150MG Oral Tablet Extended Release 24 Hour 07/14/2018 Provider: Diagnosis: twice daily Last Documented On 8 3:44PM By YENY SHI ; [facility] Medications Administered Includes: Administered Medications from this encounter No Administered Medications Recorded Vital Signs Includes: Vital Signs from this encounter Vital Name 11/11/2018 03:33P Blood Pressure Sitting L 14/80 BP Cuff Size Large Pulse Rate-Sitting (bpm) 70 Pulse Rhythm Regular Respiration Rate (breaths/min) 16 Height (in) 60 Weight (lb) 119 Body Mass Index (kg/m2) 23.2 Body Surface Area (m2) 1.5 Pain Level 4 Last Documented: On 11/11/2018 3:36PM ; [facility] Results Includes: Results discussed during this encounter No Results Recorded For Specified Dates History of Present Illness Includes: History of Present Illness from this encounter HPI MIGUEL FLOOD is a 63 year old female. Patient presents in follow up for neck pain. She is getting benefit from respiratory care faculty and has decided against injections. She would like to try to come off Hydrocodone. She has been taking about 3 per day the last month. We discussed a wean schedule. She is a little nervous, but wants to proceed. She also admits she is feeling some better. Aleve 1--2 times per day does help and she uses heat daily. MRI shows mild left stenosis at C3-4, mild to moderate left neuroforaminal stenosis at C4-5, C5-6 due to arthritis, severe right neuroforaminal stenosis at C3-4, moderate right neuroforaminal stenosis C5-6. Xrays show facet arthropathy and osteophytes. - Medication list reviewed - Prescription Drug Monitoring Program website checked. - Last dose of medication? this morning Social History Description Last Updated Cigarette smoking 1 pack daily 8 Last Documented On 9 3:31PM ; [facility] Currently 07/15/2018 Last Documented On 9 3:31PM ; [facility] Smoking status : Current everyday smoker 07/14/2018 Last Documented On 9 3:31PM ; [facility] Procedures and Surgical History Surgical History Last Updated History of cholecystectomy 200807/15/20 18 Last Documented On 9 3:31PM ; [facility] History of hysterectomy 1992 07/15/2018 Last Documented On 9 3:31PM ; [facility] Medical History Includes: Medical History addressed during this encounter Description Last Updated Eczema ~Osteopenia ~Microscopic hematuri a 07/15/2018 Last Documented On 9 3:31PM ; [facility] History of hypertension 07/15/2018 Last Documented On 9 3:31PM ; [facility] Surgery removal of ovary, ti ed up bladder- 04-14-01 ~Hernia Repair-2008 ~Carpal tunnel release and R hand carpectomy- 05-18-13 07/15/2018 Last Documented On 9 3:31PM ; [facility] History of depression 07/15/2018 Last Documented On 9 3:31PM ; [facility] 1 miscarriage(s) 07/15/2018 Last Documented On 9 3:31PM ; [facility] Currently wearing eyeglasses 07/15/2018 Last Documented On 9 3:31PM ; [facility] Previously 3 time(s) 07/15/2018 Last Documented On 9 3:31PM ; [facility] History of arthritis 07/15/2018 Last Documented On 9 3:31PM ; [facility] Family History Includes: Family History addressed during this encounter Description Last Updated Family history of diabetes mellitus 06/21 Last Documented On 9 3:31PM ; [facility] Review of Systems Includes: Review of Systems from this encounter Systemic: No fever and no chills. Head: Headache chronic/recurring. Neck: Neck pain on both sides. Otolaryngeal: Hearing loss. No mouth sores. Cardiovascular: No chest pain or discomfort. Pulmonary: No dyspnea. Shortness of breath. Gastrointestinal: Decreased appetite. No difficulty chewing, no nausea, and no vomiting. Constipation is self-treated with laxatives. Genitourinary: Hematuria and urinary frequency was increased. Endocrine: Polydipsia and muscle weakness. Hematologic: No tendency for easy bruising. Musculoskeletal: Muscle aches neck pain, pain localized to one or more joints, and joint swelling localized to one or more joints. Neurological: Dizziness. No motor disturbances. Numbness. Psychological: Feeling nervous, anxiety, depression, and insomnia. Skin: Dry skin. No rash. Mental Status Includes: Mental Status from this encounter Description Oriented to time, place, and person Anxiety Functional Status Includes: Functional Status from this encounter No Functional Status Recorded Physical Exam Includes: Physical Exam from this encounter Allergies Includes: Active Allergies Substance Type Reaction Onset Date Resolved Date Statu s Penicillin V Potassium Allergy Skin Rash es / Eruption of skin 07/14/2018 Active Last Documented On 9 1:19PM ; [facility] Encounters Encounter Provider Location Date Check-In Time Check-Out Time Diagnosis PAIN MANAGEMENT FOLLOW UP SANDOR MEDLEY [facility]- 11/11/19 19 3:30PM 3:47PM Cervical Spondylosis,S yaniv Stenosis Cervical,Yarn Conditioner jann Pain Syndrome,Oste oarthritis Localized Primary Vertebral Cervical,Rubber Covering Machine Operator Use of Opiate Analgesic Insurance Includes: Active Insurance Policies Plan Name Member ID Group # Subscriber Relationship Effect kamryn Dates 1 - [facility] [id number] MIGUEL cisneros Clinical Notes Includes: Clinical Notes from this encounter No Clinical Notes Recorded
--- OUTSIDE RECORDS SUMMARY | 2025-02-04 14:22 | XMS_ITS | Encounter Summary ---
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
--- OUTSIDE RECORDS SUMMARY | 2025-02-04 14:22 | XMS_ITS | Clinical Summary ---
Author Organization [facility] Address [address] [place] [address] Phone Care Team Providers Care Management And Budget Analyst Name Role Phone TONIA LAIRD, DIONNE Freeman Primary Care Provider [phone] ERICK LAIRD, SAJI Unavailable Unavailable Reason for Visit and Chief Complaint The Chief Complaint is: Pt here for f/u on meds Plan of Treatment No Plan of Treatment Recorded Assessments Includes: Assessments from this encounter Findings - Localized primary osteoarthritis of cervical vertebrae [M47.812 - Spondylosis without myelopathy or radiculopathy, cervical region] - Last Documented On 12/03/2018 3:00PM ; [facility] - Cervical spondylosis [M47.892 - Other spondylosis, cervical region] - Last Documented On 12/03/2018 3:00PM ; [facility] - Cervical spine stenosis [M48.02 - Spinal stenosis, cervical region] - Last Documented On 12/03/2018 3:00PM ; [facility] - Chronic pain syndrome [G89.4 - Chronic pain syndrome] - Last Documented On 12/03/2018 3:00PM ; [facility] - senior care use of opiate analgesic [Z79.891 - senior care (current) use of opiate analgesic] - Last Documented On 12/03/2018 3:00PM ; [facility] Medical Equipment - Implanted Devices Includes: Current Devices No Medical Equipment Recorded Medications Includes: Medications discussed during this encounter and other current Medications Current Medications (continue as prescribed) HYDROcodone-Acetaminophen 7. 5-325MG Oral Tablet 12/10/2018 Provider: SANDOR MENCHACA Diagnosis: Spinal stenosis, cervical region 1 po qd prn Last Documented On 9 9:28AM By SANDOR MENCHACA ; [facility] Losartan Potassium 25MG Oral Tablet 07/14/2018 Provi sue: Diagnosis: once daily Last Documented On 8 3:45PM By YENY SHI ; [facility] Cyclobenzaprine HCl 10MG Oral Tablet 07/14/2018 Prov ider: Diagnosis: as needed Last Documented On 8 3:45PM By YENY SHI ; [facility] TraZODone HCl 50MG Oral Tablet 07/14/2018 Provider: Diagnosis: once at bedtime Last Documented On 8 3:44PM By YENY SHI ; [facility] Gabapentin 300MG Oral Capsule 07/14/2018 Provider: Diagnosis: 2 capsules twice daily Last Documented On 8 3:44PM By YENY SHI ; [facility] BusPIRone HCl 15MG Oral Tablet 07/14/2018 Provider: Diagnosis: twice daily Last Documented On 8 3:44PM By YENY SHI ; [facility] BuPROPion HCl ER (XL) 150MG Oral Tablet Extended Release 24 Hour 07/14/2018 Provider: Diagnosis: twice daily Last Documented On 8 3:44PM By YENY SHI ; [facility] Medications Administered Includes: Administered Medications from this encounter No Administered Medications Recorded Vital Signs Includes: Vital Signs from this encounter Vital Name 12/03/2018 01:17P Blood Pressure Sitting L 150/90 BP Cuff Size Large Pulse Rate-Sitting (bpm) 76 Pulse Rhythm Regular Respiration Rate (breaths/min) 16 Height (in) 60 Weight (lb) 120 Body Mass Index (kg/m2) 23.4 Body Surface Area (m2) 1.5 Pain Level 5 Last Documented: On 12/03/2018 1:21PM ; [facility] Results Includes: Results discussed during this encounter No Results Recorded For Specified Dates History of Present Illness Includes: History of Present Illness from this encounter MAXIMILIANO FLOOD is a 63 year old female. Patient presents in follow up for neck pain. She has actively been trying to get off pain medication. She's has gotten to about 1 per day, but pain increases when she stops all together. Gabapentin was increased to 600mg TID. We will stay at Hydrocodone once per day as needed. Aleve 1--2 times per day does help and she uses heat daily. MRI shows mild left stenosis at C3-4, mild to moderate left neuroforaminal stenosis at C4-5, C5-6 due to arthritis, severe right neuroforaminal stenosis at C3-4, moderate right neuroforaminal stenosis C5-6. Xrays show facet arthropathy and osteophytes. - Medication list reviewed with patient - Prescription Drug Monitoring Program website checked. - Last dose of medication? last night Social History Description Last Updated Cigarette smoking 1 pack daily 8 Last Documented On 9 1:17PM ; [facility] Currently 07/15/2018 Last Documented On 9 1:17PM ; [facility] Smoking status : Current everyday smoker 07/14/2018 Last Documented On 9 1:17PM ; [facility] Procedures and Surgical History Surgical History Last Updated History of cholecystectomy 2008 018 Last Documented On 9 1:17PM ; [facility] History of hysterectomy 1992 07/15/2018 Last Documented On 9 1:17PM ; [facility] Medical History Includes: Medical History addressed during this encounter Description Last Updated Eczema ~Osteopenia ~Microscopic hematuri a 07/15/2018 Last Documented On 9 1:17PM ; [facility] History of hypertension 07/15/2018 Last Documented On 9 1:17PM ; [facility] Surgery removal of ovary, ti ed up bladder- 04-14-01 ~Hernia Repair-2008 ~Carpal tunnel release and R hand carpectomy- 05-18-13 07/15/2018 Last Documented On 9 1:17PM ; [facility] History of depression 07/15/2018 Last Documented On 9 1:17PM ; [facility] 1 miscarriage(s) 07/15/2018 Last Documented On 9 1:17PM ; [facility] Currently wearing eyeglasses 07/15/2018 Last Documented On 9 1:17PM ; [facility] Previously 3 time(s) 07/15/2018 Last Documented On 9 1:17PM ; [facility] History of arthritis 07/15/2018 Last Documented On 9 1:17PM ; [facility] Family History Includes: Family History addressed during this encounter Description Last Updated Family history of diabetes mellitus 06/21 Last Documented On 9 1:17PM ; [facility] Review of Systems Includes: Review of [...] Active Last Documented On 9 1:19PM ; [facility] Encounters Encounter Provider Location Date Check-In Time Check-Out Time Diagnosis PAIN MANAGEMENT FOLLOW UP SANDOR MEDLEY [facility]- 12/03/19 19 1:15PM 1:32PM Cervical Spondylosis,S yaniv Stenosis Cervical,Chemicals Fermentation Operator jann Pain Syndrome,Oste oarthritis Localized Primary Vertebral Cervical,Field Underwriter Use of Opiate Analgesic Insurance Includes: Active Insurance Policies Plan Name Member ID Group # Subscriber Relationship Effect kamryn Dates - [facility] [id number] MIGUEL cisneros Clinical Notes Includes: Clinical Notes from this encounter No Clinical Notes Recorded
--- OUTSIDE RECORDS SUMMARY | 2025-02-04 14:22 | XMS_ITS | Clinical Summary ---
Author Organization [facility] Address [address] [place] [address] Care Team Providers Care Supervisor Fabrication And Assembly Name Role Phone Unavailable Primary Care Provider [...]
--- OUTSIDE RECORDS SUMMARY | 2025-02-04 14:22 | XMS_ITS | Encounter Summary ---
Author Organization [facility] Address [address] [place] [address] Care Team Providers Care High School Guidance Counselor Name Role Phone Unavailable Primary Care Provider Unavailabl e Encounter Details Date Type Department Care Team (Late st Contact Info) Description 01/03/2018 Abstract [facility] CONVERSION [address] [place] [address] , Generic Conversion, Social History Tobacco Use [...]
--- OUTSIDE RECORDS SUMMARY | 2025-02-04 14:22 | XMS_ITS ---
Author Organization [facility] Address [address] [place] [address] Phone Care Team Providers Care Guest Services Attendant Name Role Phone TONIA LAIRD, DIONNE Freeman Primary Care Provider [phone] ERICK LAIRD, SAJI Sweeney Unavailable Plan of Treatment Referrals To Diagnosis Pain Management [address] [address] - Other spondylosis, cervical region Note: consent for left C4-5, C5-6, C6-7 facet joint injectionsDr. Banuelos of [place] to be done first Last Documented On 9 4:26PM ; [facility] Pain Management [facility] [address] [place] [address] - Other spondylosis, cervical region Note: consent for right C4-5 , C5-6, C6-[address] Ribeiro of [place] to be done 2nd Last Documented On 9 4:26PM ; [facility] Assessments Includes: Assessments for all patient encounters Findings Encounter Date Cervical spine stenosis PAIN MANAGEMENT FOLLOW UP with SANDOR RUSS- 12/03/2018 Last Documented On 9 3:00PM ; [facility] Cervical spondylosis PAIN MANAGEMENT FOL LOW UP with SANDOR RUSS-BC 12/03/2018 Last Documented On 9 3:00PM ; [facility] Chronic pain syndrome PAIN MANAGEMENT FO LLOW UP with SANDOR MEDLEY ANP-BC 12/03/2018 Last Documented On 9 3:00PM ; [facility] Localized primary osteoarthr itis of cervical vertebrae PAIN MANAGEMENT FOLLOW UP with SANDOR RUSS-BC 12/03/2018 Last Documented On 9 3:00PM ; [facility] watermaster use of opiate analgesic PAIN M ANAGEMENT FOLLOW UP with SANDOR L JASMYNE ANP-BC 12/03/2018 Last Documented On 9 3:00PM ; [facility] Cervical spine stenosis PAIN MANAGEMENT FOLLOW UP with SANDOR L JASMYNE ANP-BC 11/11/2018 Last Documented On 9 3:53PM ; [facility] Cervical spondylosis PAIN MANAGEMENT FOL LOW UP with SANDOR L JASMYNE ANP-BC 11/11/2018 Last Documented On 9 3:53PM ; [facility] Chronic pain syndrome PAIN MANAGEMENT FO LLOW UP with SANDOR L JASMYNE ANP-BC 11/11/2018 Last Documented On 9 3:53PM ; [facility] Localized primary osteoarthr itis of cervical vertebrae PAIN MANAGEMENT FOLLOW UP with SANDOR L JASMYNE ANP-BC 11/11/2018 Last Documented On 9 3:53PM ; [facility] watermaster use of opiate analgesic PAIN M ANAGEMENT FOLLOW UP with SANDOR L JASMYNE ANP-BC 11/11/2018 Last Documented On 9 3:53PM ; [facility] Cervical spine stenosis PAIN MANAGEMENT FOLLOW UP with SANDOR L JASMYNE ANP-BC 08/25/2018 Last Documented On 8 2:24PM ; [facility] Cervical spondylosis PAIN MANAGEMENT FOL LOW UP with SANDOR L JASMYNE ANP-BC 08/25/2018 Last Documented On 8 2:24PM ; [facility] Chronic pain syndrome PAIN MANAGEMENT FO LLOW UP with SANDOR L JASMYNE ANP-BC 08/25/2018 Last Documented On 8 2:24PM ; [facility] Localized primary osteoarthr itis of cervical vertebrae PAIN MANAGEMENT FOLLOW UP with SANDOR L JASMYNE ANP-BC 08/25/2018 Last Documented On 8 2:24PM ; [facility] halfway use of opiate analgesic PAIN M ANAGEMENT FOLLOW UP with SANDOR L JASMYNE ANP-BC 08/25/2018 Last Documented On 8 2:24PM ; [facility] Cervical spine stenosis [facility]IN [facility]NA[facility] Last Documented On 8 9:27AM ; [facility] Cervical spondylosis PAIN MANAGEMENT NEW CONSULT with SANDOR MEDLEY [facility] 07/14/2018 Last Documented On 8 9:27AM ; [facility] Chronic pain syndrome PAIN MANAGEMENT NE W CONSULT with SANDORPINA MEDLYE [facility] 07/14/2018 Last Documented On 8 9:27AM ; [facility] Localized primary osteoarthr itis of cervical vertebrae PAIN MANAGEMENT NEW CONSULT with SANDORPINA MEDLEY [facility] 07/14/2018 Last Documented On 8 9:27AM ; [facility] halfway use of opiate analgesic PAIN M ANAGEMENT NEW CONSULT with SANDORPINA MEDLEY [facility] 07/14/2018 Last Documented On 8 9:27AM ; [facility] Medical Equipment - Implanted Devices Includes: Current and historical Devices No Medical Equipment Recorded Medications Includes: Current and historical Medications Current Medications (continue as prescribed) HYDROcodone-Acetaminophen 7. 5-325MG Oral Tablet 12/10/2018 Provider: SANDOR ROSALES Diagnosis: Spinal stenosis, cervical region 1 po qd prn Last Documented On 9 9:28AM By SANDOR MEDLEY [facility] ; [facility] Losartan Potassium 25MG Oral Tablet 07/14/2018 Provi sue: Diagnosis: once daily Last Documented On 8 3:45PM By YENY SHI ; [facility] Cyclobenzaprine HCl 10MG Oral Tablet 07/14/2018 Prov ider: Diagnosis: as needed Last Documented On 8 3:45PM By YENY SHI ; [facility] TraZODone HCl 50MG Oral Tablet 07/14/2018 Provider: Diagnosis: once at bedtime Last Documented On 8 3:44PM By YENY SHI ; [facility] Gabapentin 300MG Oral Capsule 07/14/2018 Provider: Diagnosis: 2 capsules twice daily Last Documented On 8 3:44PM By YENY SHI ; [facility] BusPIRone HCl 15MG Oral Tablet 07/14/2018 Provider: Diagnosis: twice daily Last Documented On 8 3:44PM By YENY SHI ; [facility] BuPROPion HCl ER (XL) 150MG Oral Tablet Extended Release 24 Hour 07/14/2018 Provider: Diagnosis: twice daily Last Documented On 8 3:44PM By YENY SHI ; [facility] Past Medications on file Hydrocodone-Acetaminophen 7.5-325MG Oral Tablet 11/11/2018 - 12/09/2018 Provider: SANDOR MENCHACA Diagnosis: Spinal stenosis, cervical region 1 po BID x 15 days, 1 QD x 15 days Last Documented On 9 9:19AM By SANDOR MENCHACA ; [facility] Hydrocodone-Acetaminophen 7. 5-325MG Oral Tablet 09/22/2018 - 11/11/2018 Provider: SANDOR MENCHACA Diagnosis: 1 every 6 hours as neededto fill 09/25/18 Last Documented On 9 3:47PM By SANDOR MENCHACA ; [facility] Hydrocodone-Acetaminophen 7. 5-325MG Oral Tablet 08/25/2018 - 09/22/2018 Provider: SANDOR MENCHACA Diagnosis: 1 every 6 hours as needed Last Documented On 8 11:11AM By SANDOR MENCHACA ; [facility] Hydrocodone-Acetaminophen 7. 5-325MG Oral Tablet 07/24/2018 - 08/25/2018 Provider: SANDOR MENCHACA Diagnosis: 1 every 6 hours as needed Last Documented On 8 1:30PM By SANDOR MENCHACA ; [facility] Hydrocodone-Acetaminophen 7.5-325MG Oral Tablet 07/14/2018 - 07/23/2018 Provider: Diagnosis: four times daily Last Documented On 8 10:12AM By SANDOR MENCHACA ; [facility] Medications Administered Includes: Administered Medications in patient's chart No Administered Medications Recorded Results Includes: Results from 02/05/2024 through 02/04/2025 No Results Recorded For Specified Dates History of Present Illness History of Present Illness not supported for this document type No History of Present Illness Recorded Social History Description Last Updated Cigarette smoking 1 pack daily 8 Last Documented On 8 9:27AM ; [facility] Currently 07/15/2018 Last Documented On 8 9:27AM ; [facility] Smoking status : Current everyday smoker 07/14/2018 Last Documented On 8 9:27AM ; [facility] Procedures and Surgical History Surgical History Last Updated History of cholecystectomy 200807/15/20 18 Last Documented On 8 9:27AM ; [facility] History of hysterectomy 1992 07/15/2018 Last Documented On 8 9:27AM ; [facility] Medical History Includes: Medical History in patient's chart Description Last Updated Eczema ~Osteopenia ~Microscopic hematuri a 07/15/2018 Last Documented On 8 9:27AM ; [facility] History of hypertension 07/15/2018 Last Documented On 8 9:27AM ; [facility] Surgery removal of ovary, ti ed up bladder- 04-14-01 ~Hernia Repair-2008 ~Carpal tunnel release and R hand carpectomy- 05-18-13 07/15/2018 Last Documented On 8 9:27AM ; [facility] History of depression 07/15/2018 Last Documented On 8 9:27AM ; [facility] 1 miscarriage(s) 07/15/2018 Last Documented On 8 9:27AM ; [facility] Currently wearing eyeglasses 07/15/2018 Last Documented On 8 9:27AM ; [facility] Previously 3 time(s) 07/15/2018 Last Documented On 8 9:27AM ; [facility] History of arthritis 07/15/2018 Last Documented On 8 9:27AM ; [facility] Family History Includes: Family History in patient's chart Description Last Updated Family history of diabetes mellitus 06/21 Last Documented On 8 9:27AM ; [facility] Review of Systems Review of Systems not supported for this document type No Review of Systems Recorded Mental Status No Mental Status Recorded Functional Status No Functional Status Recorded Physical Exam Physical Exam not supported for this document type No Physical Exam Recorded Allergies Includes: Active, inactive, and resolved Allergies Substance Type Reaction Onset Date Resolved Date Statu s Penicillin V Potassium Allergy Skin Rash es / Eruption of skin 07/14/2018 Active Last Documented On 9 1:19PM ; [facility] Insurance Includes: Active Insurance Policies Plan Name Member ID Group # Subscriber Relationship Effect kamryn Dates 1 - [facility] [id number] MIGUEL cisneros Clinical Notes Includes: Signed Clinical Notes starting from 11/08/2022 No Clinical Notes Recorded
--- OUTSIDE RECORDS SUMMARY | 2025-02-04 14:23 | XMS_ITS | Clinical Summary ---
Author Organization [facility] Address [address] [place] [address] Phone Care Team Providers Care Health And Safety Representative Name Role Phone DIONNE RANDALL MD Primary Care Provider [phone] SAJI SUAREZ MD Unavailable Reason for Visit and Chief Complaint * PHONE CALL Plan of Treatment No Plan of Treatment Recorded Assessments Includes: Assessments from this encounter No Assessments Recorded Medical Equipment - Implanted Devices Includes: Current Devices No Medical Equipment Recorded Medications Includes: Medications discussed during this encounter and other current Medications Current Medications (continue as prescribed) HYDROcodone-Acetaminophen 7. 5-325MG Oral Tablet 12/10/2018 Provider: SANDOR MENCHACA Diagnosis: Spinal stenosis, cervical region 1 po qd prn Last Documented On 9 9:28AM By SANDOR MENCHACA ; [facility] Losartan Potassium 25MG Oral Tablet 07/14/2018 Provi sue: Diagnosis: once daily Last Documented On 8 3:45PM By YENY SHI ; [facility] Cyclobenzaprine HCl 10MG Oral Tablet 07/14/2018 Prov ider: Diagnosis: as needed Last Documented On 8 3:45PM By YENY SHI ; [facility] TraZODone HCl 50MG Oral Tablet 07/14/2018 Provider: Diagnosis: once at bedtime Last Documented On 8 3:44PM By YENY SHI ; [facility] Gabapentin 300MG Oral Capsule 07/14/2018 Provider: Diagnosis: 2 capsules twice daily Last Documented On 8 3:44PM By YENY SHI ; [facility] BusPIRone HCl 15MG Oral Tablet 07/14/2018 Provider: Diagnosis: twice daily Last Documented On 8 3:44PM By YENY SHI ; [facility] BuPROPion HCl ER (XL) 150MG Oral Tablet Extended Release 24 Hour 07/14/2018 Provider: Diagnosis: twice daily Last Documented On 8 3:44PM By YENY SHI ; [facility] Medications Administered Includes: Administered Medications from this encounter No Administered Medications Recorded Results Includes: Results discussed during this encounter No Results Recorded For Specified Dates History of Present Illness Includes: History of Present Illness from this encounter No History of Present Illness Recorded Social History Description Last Updated Cigarette smoking 1 pack daily 8 Last Documented On 9 3:48PM ; [facility] Currently 07/15/2018 Last Documented On 9 3:48PM ; [facility] Smoking status : Current everyday smoker 07/14/2018 Last Documented On 9 3:48PM ; [facility] Procedures and Surgical History Surgical History Last Updated History of cholecystectomy 200807/15/20 18 Last Documented On 9 3:48PM ; [facility] History of hysterectomy 1992 07/15/2018 Last Documented On 9 3:48PM ; [facility] Medical History Includes: Medical History addressed during this encounter Description Last Updated Eczema ~Osteopenia ~Microscopic hematuri a 07/15/2018 Last Documented On 9 3:48PM ; [facility] History of hypertension 07/15/2018 Last Documented On 9 3:48PM ; [facility] Surgery removal of ovary, ti ed up bladder- 04-14-01 ~Hernia Repair-2008 ~Carpal tunnel release and R hand carpectomy- 05-18-13 07/15/2018 Last Documented On 9 3:48PM ; [facility] History of depression 07/15/2018 Last Documented On 9 3:48PM ; [facility] 1 miscarriage(s) 07/15/2018 Last Documented On 9 3:48PM ; [facility] Currently wearing eyeglasses 07/15/2018 Last Documented On 9 3:48PM ; [facility] Previously 3 time(s) 07/15/2018 Last Documented On 9 3:48PM ; [facility] History of arthritis 07/15/2018 Last Documented On 9 3:48PM ; [facility] Family History Includes: Family History addressed during this encounter Description Last Updated Family history of diabetes mellitus 06/21 Last Documented On 9 3:48PM ; [facility] Review of Systems Includes: Review of Systems from this encounter No Review of Systems Recorded Mental Status Includes: Mental Status from this encounter No Mental Status Recorded Functional Status Includes: Functional Status from this encounter No Functional Status Recorded Physical Exam Includes: Physical Exam from this encounter No Physical Exam Recorded Allergies Includes: Active Allergies Substance Type Reaction Onset Date Resolved Date Statu s Penicillin V Potassium Allergy Skin Rash es / Eruption of skin 07/14/2018 Active Last Documented On 9 1:19PM ; [facility] Encounters Encounter Provider Location Date Check-In Time Check-Out Time Diagnosis * PHONE CALL SANDOR MENCHACA 12/09/2018 3:48PM 11:59PM Insurance Includes: Active Insurance Policies Plan Name Member ID Group # Subscriber Relationship Effect kamryn Dates - [facility] [id number] MIGUEL cisneros Clinical Notes Includes: Clinical Notes from this encounter No Clinical Notes Recorded
--- OUTSIDE RECORDS SUMMARY | 2025-02-04 14:23 | XMS_ITS | Encounter Summary ---
Author Organization [facility] Address [address] [facility] [address] [place] [address] Phone Care Team Providers Care Top Lift Cutter Name Role Phone Romero Ludwig MD Primary Care Provider [phone] Encounter Details Date Type Department Care Team (Late st Contact Info) Description 12/07/2024 Results Follow-Up [facility] ([facility]) [facility] Urology [address] [facility] Advanced Medicine 11th [place] [address] [place] [address] Deepti Torres MD [address] [facility] [place] [address] Social History Tobacco Use Types Packs/Day Years [...] on file 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
--- OUTSIDE RECORDS SUMMARY | 2025-02-04 14:23 | XMS_ITS | Clinical Summary ---
Author Organization [facility] Address [address] [place] [address] Phone Care Team Providers Care Diesel Power Mechanic Name Role Phone Romero Ludwig MD [...] Insurance MEDICAID [employer] Care Teams Diesel Power Mechanic Relationship Specialty Start Date End Date Romero Ludwig MD [address] [place] [address] PCP - General Internal Medicine 04/30/18
--- OUTSIDE RECORDS SUMMARY | 2025-02-04 14:23 | XMS_ITS | Clinical Summary ---
Author Organization [facility] Address [address] [facility] [place] [address] Phone Care Team Providers Care Business Area Director Name Role Phone TONIA LAIRD, DIONNE Freeman Primary Care Provider [phone] ERICK LAIRD, SAJI Sweeney Unavailable Reason for Visit and Chief Complaint * PHONE CALL Plan of Treatment No Plan of Treatment Recorded Assessments Includes: Assessments from this encounter No Assessments Recorded Medical Equipment - Implanted Devices Includes: Current Devices No Medical Equipment Recorded Medications Includes: Medications discussed during this encounter and other current Medications New / Renewed during this visit SNADOR MENCHACA on 09/22/2018 Hydrocodone-Acetaminophen 7. 5-325MG Oral Tablet Provider: SANDOR MENCHACA 30 day supply: 120 tablet, 0 refills Diagnosis: 1 every 6 hours as neededto fill 09/25/18 Pharma cy: [facility], [phone] - Last Documented On 9 3:47PM By SANDOR MENCHACA ; [facility] Current Medications (continue as prescribed) HYDROcodone-Acetaminophen 7. 5-325MG Oral Tablet 12/10/2018 Provider: SANDOR MENCHACA Diagnosis: Spinal stenosis, cervical region 1 po qd prn Last Documented On 9 9:28AM By SANDOR MENCHACA ; [facility] Losartan Potassium 25MG Oral Tablet 07/14/2018 Provi sue: Diagnosis: once daily Last Documented On 8 3:45PM By YENY SHI ; [facility] Cyclobenzaprine HCl 10MG Oral Tablet 07/14/2018 Prov ider: Diagnosis: as needed Last Documented On 8 3:45PM By YENY SHI ; [facility] TraZODone HCl 50MG Oral Tablet 07/14/2018 Provider: Diagnosis: once at bedtime Last Documented On 8 3:44PM By YENY SHI ; [facility] Gabapentin 300MG Oral Capsule 07/14/2018 Provider: Diagnosis: 2 capsules twice daily Last Documented On 8 3:44PM By YENY SHI ; [facility] BusPIRone HCl 15MG Oral Tablet 07/14/2018 Provider: Diagnosis: twice daily Last Documented On 8 3:44PM By YENY SHI ; [facility] BuPROPion HCl ER (XL) 150MG Oral Tablet Extended Release 24 Hour 07/14/2018 Provider: Diagnosis: twice daily Last Documented On 8 3:44PM By YENY SHI ; [facility] Medications Administered Includes: Administered Medications from this encounter No Administered Medications Recorded Results Includes: Results discussed during this encounter No Results Recorded For Specified Dates History of Present Illness Includes: History of Present Illness from this encounter No History of Present Illness Recorded Social History Description Last Updated Cigarette smoking 1 pack daily 8 Last Documented On 8 9:18AM ; [facility] Currently 07/15/2018 Last Documented On 8 9:18AM ; [facility] Smoking status : Current everyday smoker 07/14/2018 Last Documented On 8 9:18AM ; [facility] Procedures and Surgical History Surgical History Last Updated History of cholecystectomy 200807/15/20 18 Last Documented On 8 9:18AM ; [facility] History of hysterectomy 1992 07/15/2018 Last Documented On 8 9:18AM ; [facility] Medical History Includes: Medical History addressed during this encounter Description Last Updated Eczema ~Osteopenia ~Microscopic hematuri a 07/15/2018 Last Documented On 8 9:18AM ; [facility] History of hypertension 07/15/2018 Last Documented On 8 9:18AM ; [facility] Surgery removal of ovary, ti ed up bladder- 04-14-01 ~Hernia Repair-2009 ~Carpal tunnel release and R hand carpectomy- 7-30-13 07/15/2018 Last Documented On 8 9:18AM ; [facility] History of depression 07/15/2018 Last Documented On 8 9:18AM ; [facility] 1 miscarriage(s) 07/15/2018 Last Documented On 8 9:18AM ; [facility] Currently wearing eyeglasses 07/15/2018 Last Documented On 8 9:18AM ; [facility] Previously 3 time(s) 07/15/2018 Last Documented On 8 9:18AM ; [facility] History of arthritis 07/15/2018 Last Documented On 8 9:18AM ; [facility] Family History Includes: Family History addressed during this encounter Description Last Updated Family history of diabetes mellitus 06/21 Last Documented On 8 9:18AM ; [facility] Review of Systems Includes: Review of [...] Active Last Documented On 9 1:19PM ; [facility] Encounters Encounter Provider Location Date Check-In Time Check-Out Time Diagnosis * PHONE CALL SANDOR [facility]- 8 9:18AM 11:59PM Insurance Includes: Active Insurance Policies Plan Name Member ID Group # Subscriber Relationship Effect kamryn Dates 1 - [facility] [id number] MIGUEL cisneros Clinical Notes Includes: Clinical Notes from this encounter No Clinical Notes Recorded
--- OUTSIDE RECORDS SUMMARY | 2025-02-04 14:23 | XMS_ITS | Clinical Summary ---
Author Organization [facility] Address [address] [place] [address] Care Team Providers Care Oracle Bpm Consultant Name Role Phone Romero Ludwig MD Primary Care Provider [phone] Allergies Active Allergy Reactions Criticality Noted Date [...] DO NOT TAKE in combination with prescribed [place] pain medication. Take for pain unrelieved by [...] Department Care Team Description 12/07/2024 11:20 AM LEAFLET OR NEWSPAPER DELIVERER Office Visit [facility] ([facility]) - [facility] Urology [address] [place] [address] Advanced Medicine 11th [place] [address] Deepti Torres MD Renal mass (Primary Dx) 12/07/2024 9:03 AM LEAFLET OR NEWSPAPER DELIVERER - 12/07/2024 11:59 PM LEAFLET OR NEWSPAPER DELIVERER Hospital Encounter [facility] [address] [place] [address] Deepti Torres MD Renal cell cancer, left (HCC) Discharge Disposition: Discharge to home or self care 12/07/2024 Results Follow-Up [place] [facility] ([facility]) - [facility] Urology [address] [place] [address] Advanced Medicine 11th [place] [address] Deepti Torres MD from Last 3 Months [...] on file 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 Gender Identity Not on file Sexual Orientation [...] Read Routine (OP Routine) 12/07/2024 9:43 AM LEAFLET OR NEWSPAPER DELIVERER Renal cell cancer, left (HCC) POCT CREATININE - DEVICE Routine 12/07/2024 9:24 AM LEAFLET OR NEWSPAPER DELIVERER DEXA TBS AXIAL SKELETON BONE DENSITY 1 OR MORE SITES Schedule Routine, Read Routine (OP Routine) 08/02/2024 12:15 PM CDT Age-related osteoporosis without current pathological fracture COLONOSCOPY IMAGES 07/08/2014 from Last 3 Months or Most Recently Relevant to Health Maintenance Results * CT Chest Abdomen W Contrast (12/07/2024 9:43 AM LEAFLET OR NEWSPAPER DELIVERER) Anatomical Region Laterality Modality Body N/A Computed Tomogra phy 12/07/2024 4:10 PM LEAFLET OR NEWSPAPER DELIVERER Impressions 12/07/2024 4:10 PM LEAFLET OR NEWSPAPER DELIVERER Changes of left nephrectomy without evidence of recurrent or metastatic disease. Electronically signed by: Wei Suarez M.D. Narrative 12/07/2024 4:10 PM LEAFLET OR NEWSPAPER DELIVERER Examination: Computed tomography of the chest and [...] Result * POCT creatinine (12/07/2024 9:24 AM LEAFLET OR NEWSPAPER DELIVERER) Creatinine POC 1.0 0.6 - 1.1 mg/dL Blood 12/07/2024 9:24 AM LEAFLET OR NEWSPAPER DELIVERER 12/07/2024 9:24 AM LEAFLET OR NEWSPAPER DELIVERER us Romero Ludwig MD LAB POCT ORDERABLES - DEVICE Final Result [facility] Department [place] [address] * Dexa TBS Axial Skeleton Bone Density 1 or more sites (08/02/2024 12:15 PM CDT) Anatomical Region Laterality Modality Wrist, Body N/A Radiographic Fani ging Narrative 08/03/2024 12:00 PM CDT Patient Name: Marissa Shoemaker Date of : 1955 Date of scan: 08/02/2024 Bone mineral density was performed on a [employer] Discovery Densitometer. Based on machine cross-calibration and [...] by the International Society of Clinical Densitometry. [id number] Desmond Moreno MD IMG DXA PROCEDURES Final Result * COLONOSCOPY IMAGES (07/08/2014) Anatomical Region Laterality Modality Other Narrative 07/08/2014 Ordered by an unspecified provider. Historical Provider GI PROCEDURE ORDERABLES F inal Result from Last 3 Months or Most Recently Relevant to Health Maintenance Insurance IDPR [employer] MEDICARE PPO HU[employer]ICE MEDICARE PPO Advance Directives For more information, please contact: [phone] * Full Code (Latest Code Status on File) Date Activated Date Inactivated Comments 05/21/2024 8:07 PM 05/22/2024 8:24 PM Care Teams Oracle Bpm Consultant Relationship Specialty Start Date End Date Romero Ludwig MD [address] [place] [address] PCP - General 08/21/09
--- OUTSIDE RECORDS SUMMARY | 2025-02-04 14:23 | XMS_ITS | Referral Summary ---
Author Organization [facility] Address [address] [place] [address] Care Team Providers Care Automobile Seat Cover Installer Name Role Phone Romero Ludwig MD Primary Care Provider [phone] Encounters Date Type Department Care Team Description 12/07/2024 Results Follow-Up [facility] Advanced [facility]) [facility] [address] [place] [address] Advanced Medicine 11th [place] [address] Deepti Torres MD 12/07/2024 9:03 AM HOUSECALLS NURSE - 12/07/2024 11:59 PM HOUSECALLS NURSE Hospital Encounter [facility] Radiology [facility] [address] [place] [address] Deepti Torres MD Renal cell cancer, left (HCC) Discharge Disposition: Discharge to home or self care 12/07/2024 11:20 AM HOUSECALLS NURSE Office Visit [place] [facility] ([facility]) [facility] [address] [place] [address] Medicine 11th [place] [address] [place] [address] Deepti Torres MD Renal mass (Primary Dx) [...] DO NOT TAKE in combination with prescribed [place] pain medication. Take for pain unrelieved by [...] on file Legal Sex Female 6:33 PM HOUSECALLS NURSE Gender Identity Not on file Sexual Orientation [...] Read Routine (OP Routine) 12/07/2024 9:43 AM HOUSECALLS NURSE Renal cell cancer, left (HCC) POCT CREATININE - DEVICE Routine 12/07/2024 9:24 AM HOUSECALLS NURSE DEXA TBS AXIAL SKELETON BONE DENSITY 1 OR MORE SITES Schedule Routine, Read Routine (OP Routine) 08/02/2024 12:15 PM CDT Age-related osteoporosis without current pathological fracture COLONOSCOPY IMAGES 07/08/2014 from Last 3 Months or Most Recently Relevant to Health Maintenance Results * CT Chest Abdomen W Contrast (12/07/2024 9:43 AM HOUSECALLS NURSE) Anatomical Region Laterality Modality Body N/A Computed Tomogra phy 12/07/2024 4:10 PM HOUSECALLS NURSE Impressions 12/07/2024 4:10 PM HOUSECALLS NURSE Changes of left nephrectomy without evidence of recurrent or metastatic disease. Electronically signed by: Wei Suarez M.D. Narrative 12/07/2024 4:10 PM HOUSECALLS NURSE Examination: Computed tomography of the chest and [...] Result * POCT creatinine (12/07/2024 9:24 AM HOUSECALLS NURSE) Creatinine POC 1.0 0.6 - 1.1 mg/dL Blood 12/07/2024 9:24 AM HOUSECALLS NURSE 12/07/2024 9:24 AM HOUSECALLS NURSE Romero Ludwig MD LAB POCT ORDERABLES - DEVICE Final Result [facility] [place] [address] * Dexa TBS Axial Skeleton Bone Density 1 or more sites (08/02/2024 12:15 PM CDT) Anatomical Region Laterality Modality Wrist, Body N/A Radiographic Fani ging Narrative 08/03/2024 12:00 PM CDT Patient Name: Marissa Shoemaker Date of : 1955 Date of scan: 08/02/2024 Bone mineral density was performed on a [employer] Discovery Densitometer. Based on machine cross-calibration and [...] by the International Society of Clinical Densitometry. [id number] Desmond Moreno MD IMG DXA PROCEDURES Final Result * COLONOSCOPY IMAGES (07/08/2014) Anatomical Region Laterality Modality Other Narrative 07/08/2014 Ordered by an unspecified provider. Historical Provider GI PROCEDURE ORDERABLES F inal Result from Last 3 Months or Most Recently Relevant to Health Maintenance Insurance IDPA HUMANA CHOICE MEDICARE PPO HUMANA CHOICE MEDICARE PPO Advance Directives For more information, please contact: [phone] * Full Code (Latest Code Status on File) Date Activated Date Inactivated Comments 05/21/2024 8:07 PM 05/22/2024 8:24 PM Care Teams Automobile Seat Cover Installer Relationship Specialty Start Date End Date Romero Ludwig MD [address] [place] [address] PCP - General 08/21/09
--- OUTSIDE RECORDS SUMMARY | 2025-02-04 14:23 | XMS_ITS | Clinical Summary ---
Author Organization [facility] Address [address] [place] [address] Phone Care Team Providers Care Echocardiography Technologist Name Role Phone DIONNE RANDALL MD Primary Care Provider [phone] SAJI SUAREZ MD Unavailable Reason for Visit [...] On 9 9:28AM By SANDOR MENCHACA ; [facility] Losartan Potassium 25MG Oral Tablet 07/14/2018 Provi sue: Diagnosis: once daily Last Documented On 8 3:45PM By YENY SHI ; [facility] Cyclobenzaprine HCl 10MG Oral Tablet 07/14/2018 Prov ider: Diagnosis: as needed Last Documented On 8 3:45PM By YENY SHI ; [facility] TraZODone HCl 50MG Oral Tablet 07/14/2018 Provider: Diagnosis: once at bedtime Last Documented On 8 3:44PM By YENY SHI ; [facility] Gabapentin 300MG Oral Capsule 07/14/2018 Provider: Diagnosis: 2 capsules twice daily Last Documented On 8 3:44PM By YENY SHI ; [facility] BusPIRone HCl 15MG Oral Tablet 07/14/2018 Provider: Diagnosis: twice daily Last Documented On 8 3:44PM By YENY SHI ; [facility] BuPROPion HCl ER (XL) 150MG Oral Tablet Extended Release 24 Hour 07/14/2018 Provider: Diagnosis: twice daily Last Documented On 8 3:44PM By YENY SHI ; [facility] Medications Administered Includes: Administered Medications from this encounter No Administered Medications Recorded Results Includes: Results discussed during this encounter No Results Recorded For Specified Dates History of Present Illness Includes: History of Present Illness from this encounter No History of Present Illness Recorded Social History Description Last Updated Cigarette smoking 1 pack daily 8 Last Documented On 9 11:33AM ; [facility] Currently 07/15/2018 Last Documented On 9 11:33AM ; [facility] Smoking status : Current everyday smoker 07/14/2018 Last Documented On 9 11:33AM ; [facility] Procedures and Surgical History Surgical History Last Updated History of cholecystectomy 200807/15/20 18 Last Documented On 9 11:33AM ; [facility] History of hysterectomy 1992 07/15/2018 Last Documented On 9 11:33AM ; [facility] Medical History Includes: Medical History addressed during this encounter Description Last Updated Eczema ~Osteopenia ~Microscopic hematuri a 07/15/2018 Last Documented On 9 11:33AM ; [facility] History of hypertension 07/15/2018 Last Documented On 9 11:33AM ; [facility] Surgery removal of ovary, ti ed up bladder- 04-14-01 ~Hernia Repair-2008 ~Carpal tunnel release and R hand carpectomy- 05-18-13 07/15/2018 Last Documented On 9 11:33AM ; [facility] History of depression 07/15/2018 Last Documented On 9 11:33AM ; [facility] 1 miscarriage(s) 07/15/2018 Last Documented On 9 11:33AM ; [facility] Currently wearing eyeglasses 07/15/2018 Last Documented On 9 11:33AM ; [facility] Previously 3 time(s) 07/15/2018 Last Documented On 9 11:33AM ; [facility] History of arthritis 07/15/2018 Last Documented On 9 11:33AM ; [facility] Family History Includes: Family History addressed during this encounter Description Last Updated Family history of diabetes mellitus 06/21 Last Documented On 9 11:33AM ; [facility] Review of Systems Includes: Review of Systems [...] Active Last Documented On 9 1:19PM ; [facility] Encounters Encounter Provider Location Date Check-In Time Check-Out Time Diagnosis * PHONE CALL SANDOR MEDLEY [facility]- 9 11:33AM 11:59PM Insurance Includes: Active Insurance Policies Plan Name Member ID Group # Subscriber Relationship Effect kamryn Dates 1 - [facility] [id number] MIGUEL cisneros Clinical Notes Includes: Clinical Notes from this encounter No Clinical Notes Recorded
--- OUTSIDE RECORDS SUMMARY | 2025-02-04 14:23 | XMS_ITS ---
Care Plan - [facility] Created on: February 04, 2025 MIGUEL FLOOD : 1955 Sex: Female Author Organization [facility] Address [address] [place] [address] Phone Care Team Providers Care Hris Manager Name Role Phone TONIA LAIRD, DIONNE Freeman Primary Care Provider [phone] ERICK LAIRD, SAJI Sweeney
== END 2025-02-04 14:10 | disposition home or self-care (01) ==
PROVIDERS: PCP Internal Medicine; Visit Provider Internal Medicine
DX: Z12.2 Encounter for screening for malignant neoplasm of respiratory organs (principal); Z87.891 Personal history of nicotine dependence; I65.23 Occlusion and stenosis of bilateral carotid arteries
CPT/HCPCS: 93880

== ENCOUNTER 2025-03-03 12:41 | Outpatient (CLI) | payer MEDICARE, SELFPAY ==
--- NOTE | ~2025-03-03 | MM_ITS ---
EXAMINATION: MM screening mark BI w wei HISTORY: Screening TECHNIQUE: Craniocaudal and mediolateral oblique 3-D tomosynthesis images were obtained and synthetic 2-D images were generated. CAD analysis was submitted and interpreted. COMPARISON: Comparison to multiple prior studies sequentially, with oldest reviewed study dated 01/04. BREAST PARENCHYMAL COMPOSITION: Dense: The breasts are heterogeneously dense, which may obscure small masses FINDINGS: There is no evidence of suspicious mass, calcification, or architectural distortion to sugg est malignancy in either breast. There has been no suspicious interval change. IMPRESSION: 1. No mammographic evidence of malignancy. 2. Recommend routine screening mammography in one year. BI-RADS Category 1: Negative Reviewed, dictated and finalized at location A.
== END 2025-03-03 12:42 | disposition home or self-care (01) ==
LOC: MICIMG 12:44
PROVIDERS: PCP Internal Medicine; Visit Provider Internal Medicine
DX: Z12.31 Encounter for screening mammogram for malignant neoplasm of breast (principal)
CPT/HCPCS: 77063; 77067

== ENCOUNTER 2025-07-20 12:35 | Outpatient (CLI) | payer MEDICARE, SELFPAY ==
--- NOTE | ~2025-07-20 | CT_ITS ---
EXAMINATION: CT abdomen pelvis wo/w con DATE: 07/20/2025 13:23 INDICATION: Kidney cancer. TECHNIQUE: Computed tomography (CT) of the abdomen and pelvis was performed without and with 100 mL Omnipaque 350 intravenous contrast. Automated exposure control and iterative reconstruction technique were employed. The dose-length product was 443.33 mGy-cm. COMPARISON: CT abdomen and pelvis 03/30/2024 FINDINGS: The visualized portions of the lung bases demonstrate mild atelectasis on the right. No pleural effusion. The heart size is normal. No pericardial effusion. The liver and spleen are normal. There are changes of cholecystectomy. The pancreas and adrenal glands are normal. There is a 7 mm cyst in right kidney. There are changes of left nephrectomy. There are no dilated loops of bowel. The appendix is normal. There are no pathologically enlarged lymph nodes. There is no free intraperitoneal fluid. There is severe lower lumbar spondylosis. IMPRESSION: 1. Left nephrectomy. No evidence of metastatic disease. Reviewed, dictated and finalized at location E.
[2025-07-20 13:04] LABS: Estimated Glomerular Filt Rate 55
== END 2025-07-20 12:36 | disposition home or self-care (01) ==
LOC: MICIMG 12:38
PROVIDERS: PCP Internal Medicine; Visit Provider Urology
DX: N28.89 Other specified disorders of kidney and ureter (principal); Z90.5 Acquired absence of kidney
CPT/HCPCS: 74178; Q9967